=== PATIENT | male | born 1995 | race Caucasian/White ===

== ENCOUNTER 2016-11-23 20:22 | Emergency (ER) | payer SELFPAY ==
[~2016-11-23] VITALS: Ht 175.3 cm; Wt 75.7 kg
[~2016-11-23 20:22] MED LIST: CARB20TA PO; CELE10TA PO
[2016-11-23 22:19] VITALS: BP 152/86
== END 2016-11-23 22:24 | disposition home or self-care (01) ==
LOC: M ED 21:28
DX: R21 Rash and other nonspecific skin eruption (principal); F17.200 Nicotine dependence, unspecified, uncomplicated

== ENCOUNTER 2018-07-08 14:20 | Emergency (ER) | payer SELFPAY | END 2018-07-08 15:52 | disposition home or self-care (01) | LOC: M ED 14:20 | DX: N50.3 Cyst of epididymis (principal); N50.89 Other specified disorders of the male genital organs; F17.200 Nicotine dependence, unspecified, uncomplicated; Z91.030 Bee allergy status | CPT/HCPCS: 76870 ==

== ENCOUNTER 2020-03-29 23:58 | Emergency (ER) | payer SELFPAY ==
[~2020-03-29] VITALS: Ht 180.3 cm; Wt 81.8 kg
[~2020-03-29 23:58] MED LIST changes: +DOXY100C37 PO
[2020-03-30 01:09] LABS: HEMATOCRIT 38.3 % (42.0-52.0); HEMOGLOBIN 12.7 g/dl (13.5-17.5); MEAN CORPUSCULAR HEMOGLOBIN 29.7 pg (27.0-33.0); MEAN CORPUSCULAR HGB CONC 33.2 g/dl (32.0-36.5); MEAN CORPUSCULAR VOLUME 89.5 fl (80.0-96.0); PLATELET COUNT, AUTOMATED 204 10^3/uL (150-450); RED BLOOD COUNT 4.28 10^6/uL (4.30-6.10); WHITE BLOOD COUNT 5.7 10^3/uL (4.0-10.0)
[2020-03-30 02:00] LABS: AMPHETAMINES LEVEL URINE NEGATIVE (NEGATIVE); BARBITURATES URINE NEGATIVE (NEGATIVE); BENZODIAZEPINES URINE NEGATIVE (NEGATIVE); CANNABINOIDS URINE POSITIVE (NEGATIVE); COCAINE METABOLITE URINE POSITIVE (NEGATIVE); METHADONE URINE NEGATIVE (NEGATIVE); OPIATES URINE POSITIVE (NEGATIVE); PHENCYCLIDINE URINE NEGATIVE (NEGATIVE)
[2020-03-30 02:10] LABS: ACETAMINOPHEN LEVEL < 2.0 UG/ML (10.0-30.0); ALBUMIN 3.6 GM/DL (3.2-5.2); ALT/SGPT 113 U/L (12-78); BILIRUBIN,DIRECT 0.1 MG/DL (0.0-0.2); BILIRUBIN,TOTAL 0.5 MG/DL (0.2-1.0); BLOOD UREA NITROGEN 19 MG/DL (7-18); CALCIUM LEVEL 8.4 MG/DL (8.5-10.1); CARBON DIOXIDE LEVEL 29 MEQ/L (21-32); CHLORIDE LEVEL 107 MEQ/L (98-107); CREATININE FOR GFR 1.31 MG/DL (0.70-1.30); ETHYL ALCOHOL (ETHANOL) < 0.003 % (0.000-0.010); GLOMERULAR FILTRATION RATE > 60.0 (>60); GLUCOSE, FASTING 85 MG/DL (70-100); POTASSIUM SERUM 4.1 MEQ/L (3.5-5.1); SALICYLATE LEVEL 2.2 MG/DL (5.0-30.0); SODIUM LEVEL 144 MEQ/L (136-145); TOTAL PROTEIN 6.8 GM/DL (6.4-8.2)
[2020-03-30 02:11] LABS: THYROID STIMULATING HORMONE 0.918 uIU/ML (0.358-3.740)
[2020-03-30 02:54] VITALS: BP 119/70
== END 2020-03-30 02:56 | disposition home or self-care (01) ==
LOC: M ED 23:58
DX: F43.0 Acute stress reaction (principal); F32.9 Major depressive disorder, single episode, unspecified; Z72.0 Tobacco use; F12.10 Cannabis abuse, uncomplicated; F14.10 Cocaine abuse, uncomplicated; F11.10 Opioid abuse, uncomplicated; Z91.030 Bee allergy status
CPT/HCPCS: 80048; 80076; 80307; 84443; 85027; 99284; G0480

== ENCOUNTER 2020-05-09 15:00 | Emergency (ER) | payer SELFPAY ==
[~2020-05-09] VITALS: Ht 182.9 cm; Wt 81.8 kg
[2020-05-09 16:06] LABS: BASO % 0.5 % (0.0-1.0); EOS # 0.2 10^3/uL (0.0-0.5); EOS % 2.5 % (0.0-3.0); HEMATOCRIT 39.8 % (42.0-52.0); HEMOGLOBIN 13.3 g/dl (13.5-17.5); LYMPH # 1.5 10^3/uL (1.5-5.0); LYMPH % 18.9 % (24.0-44.0); MEAN CORPUSCULAR HGB CONC 33.4 g/dl (32.0-36.5); MEAN CORPUSCULAR VOLUME 89.6 fl (80.0-96.0); MONO # 1.2 10^3/uL (0.0-0.8); MONO % 14.2 % (0.0-5.0); NEUTROPHILS # 5.1 10^3/uL (1.5-8.5); NEUTROPHILS % 63.5 % (36.0-66.0); PLATELET COUNT, AUTOMATED 226 10^3/uL (150-450); RED BLOOD COUNT 4.44 10^6/uL (4.30-6.10); WHITE BLOOD COUNT 8.1 10^3/uL (4.0-10.0)
[2020-05-09 16:37] LABS: ALBUMIN 3.5 GM/DL (3.2-5.2); ALT/SGPT 390 U/L (12-78); BILIRUBIN,DIRECT 0.2 MG/DL (0.0-0.2); BILIRUBIN,TOTAL 0.5 MG/DL (0.2-1.0); BLOOD UREA NITROGEN 14 MG/DL (7-18); CALCIUM LEVEL 8.8 MG/DL (8.5-10.1); CARBON DIOXIDE LEVEL 29 MEQ/L (21-32); CHLORIDE LEVEL 102 MEQ/L (98-107); CREATININE FOR GFR 0.95 MG/DL (0.70-1.30); GLOMERULAR FILTRATION RATE > 60.0 (>60); GLUCOSE, FASTING 117 MG/DL (70-100); LIPASE 74 U/L (73-393); POTASSIUM SERUM 4.3 MEQ/L (3.5-5.1); SODIUM LEVEL 135 MEQ/L (136-145); TOTAL PROTEIN 6.7 GM/DL (6.4-8.2)
[2020-05-09] MEDS ORDERED: NORCO, ANEXSIA 5/325MG TABLET (HYDROcodone/ACETAMINOPHEN) PO ONE (17:00)
[2020-05-09] MEDS ORDERED: cefTRIAXone SOD 1 GM in D5W MINI-BAG PLUS 50 ML IV ONE (17:15)
[2020-05-09] MEDS ORDERED: KETOROLAC 30 MG/ML 1ML VIAL IV ONE (17:15)
[2020-05-09] MEDS ORDERED: NS 1,000 ML IV ONE (17:15)
[2020-05-09] MEDS ORDERED: BACT800T5 PO (18:21)
[2020-05-09 18:29] VITALS: BP 124/69
[2020-05-09] MEDS ORDERED: BACTRIM 160MG/800MG DS TAB PO ONE (18:30)
[2020-05-10 18:11] LABS: HEPATITIS A ANTIBODY IGM NEGATIVE (NEGATIVE); HEPATITIS B CORE ANTIBODY IGM NEGATIVE (NEGATIVE); HEPATITIS B SURFACE ANTIGEN NEGATIVE (NEGATIVE)
[2020-05-11 08:19] LABS: HEPATITIS C VIRUS ABY INDEX > 11.0 INDEX (<0.8)
--- NOTE | 2020-06-09 10:40 | REP ---
LEFT TIBIA/FIBULA CLINICAL: Cellulitis. TECHNIQUE: AP and lateral views. FINDINGS: The osseous structures are intact and there is no evidence for acute fracture or dislocation. No periosteal reaction to suggest underlying osteomyelitis. The surrounding soft tissues are grossly unremarkable by radiographic evaluation and without subcutaneous emphysema or foreign body. IMPRESSION: Normal left tibia/fibula radiographs. No evidence for osteomyelitis or foreign body. MTDD
== END 2020-05-09 18:41 | disposition home or self-care (01) ==
LOC: M ED 15:00
DX: L03.116 Cellulitis of left lower limb (principal); F17.200 Nicotine dependence, unspecified, uncomplicated; Z91.030 Bee allergy status
CPT/HCPCS: 73590; 80048; 80076; 83605; 83690; 85025; 86705; 86709; 86803; 87040; 87340; 87521; 96365; 96375; 99284; J0696; J1885

== ENCOUNTER 2020-06-12 02:29 | Emergency (ER) | payer MEDICAID, SELFPAY ==
[~2020-06-12] VITALS: Ht 175.3 cm; Wt 72.7 kg
[~2020-06-12 02:29] MED LIST changes: +BACT800T5 PO
[2020-06-12] MEDS ORDERED: NS 1,000 ML IV ONE (02:45)
[2020-06-12 03:05] LABS: BASO # 0.1 10^3/uL (0.0-0.2); EOS # 0.4 10^3/uL (0.0-0.5); EOS % 4.8 % (0.0-3.0); HEMATOCRIT 41.7 % (42.0-52.0); HEMOGLOBIN 13.5 g/dl (13.5-17.5); LYMPH # 2.9 10^3/uL (1.5-5.0); LYMPH % 40.2 % (24.0-44.0); MEAN CORPUSCULAR HEMOGLOBIN 28.8 pg (27.0-33.0); MEAN CORPUSCULAR HGB CONC 32.4 g/dl (32.0-36.5); MEAN CORPUSCULAR VOLUME 89.1 fl (80.0-96.0); MONO % 13.5 % (0.0-5.0); NEUTROPHILS # 2.9 10^3/uL (1.5-8.5); NEUTROPHILS % 40.4 % (36.0-66.0); PLATELET COUNT, AUTOMATED 259 10^3/uL (150-450); RED BLOOD COUNT 4.68 10^6/uL (4.30-6.10); WHITE BLOOD COUNT 7.3 10^3/uL (4.0-10.0)
[2020-06-12 03:17] LABS: INR 0.97
[2020-06-12 03:18] LABS: PARTIAL THROMBOPLASTIN TIME 35.3 SECONDS (24.2-38.5)
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
[2020-06-12 03:24] LABS: BLOOD UREA NITROGEN 21 MG/DL (7-18); CALCIUM LEVEL 9.6 MG/DL (8.5-10.1); CARBON DIOXIDE LEVEL 28 MEQ/L (21-32); CHLORIDE LEVEL 103 MEQ/L (98-107); CREATININE FOR GFR 1.23 MG/DL (0.70-1.30); ETHYL ALCOHOL (ETHANOL) < 0.003 % (0.000-0.010); GLOMERULAR FILTRATION RATE > 60.0 (>60); GLUCOSE, FASTING 104 MG/DL (70-100); POTASSIUM SERUM 4.5 MEQ/L (3.5-5.1); SODIUM LEVEL 138 MEQ/L (136-145)
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
[2020-06-12] MEDS ORDERED: NALOXONE 2MG/2ML SYRINGE (J2310 PER 1MG) IV STA (04:54)
[2020-06-12 05:36] LABS: AMPHETAMINES LEVEL URINE POSITIVE (NEGATIVE); BARBITURATES URINE NEGATIVE (NEGATIVE); BENZODIAZEPINES URINE NEGATIVE (NEGATIVE); CANNABINOIDS URINE POSITIVE (NEGATIVE); COCAINE METABOLITE URINE NEGATIVE (NEGATIVE); METHADONE URINE NEGATIVE (NEGATIVE); OPIATES URINE POSITIVE (NEGATIVE); PHENCYCLIDINE URINE NEGATIVE (NEGATIVE)
[2020-06-12] MEDS ORDERED: AUGM875T28 PO (05:56)
[2020-06-12 07:38] VITALS: BP 120/68
[2020-06-12] MEDS ORDERED: ACETAMINOPHEN TAB 650MG DOSE (2X325MG) PO ONE (08:15)
[2020-06-12] MEDS ORDERED: AUGMENTIN 875 MG TAB PO ONE (08:30)
--- NOTE | 2020-06-13 07:37 | ED PDOC ---
Post-Departure Follow-Up dr beto berg faxed formal report of ct max fac for fu Casimiro Cuevas MD Jun 13, 2020 07:37
== END 2020-06-12 09:38 | disposition home or self-care (01) ==
LOC: M ED 02:29
DX: S02.2XXA Fracture of nasal bones, initial encounter for closed fracture (principal); S02.32XA Fracture of orbital floor, left side, initial encounter for closed fracture; F11.129 Opioid abuse with intoxication, unspecified; Y04.8XXA Assault by other bodily force, initial encounter; Y92.9 Unspecified place or not applicable; Y93.9 Activity, unspecified; Y99.9 Unspecified external cause status; Z04.71 Encounter for examination and observation following alleged adult physical abuse; F32.9 Major depressive disorder, single episode, unspecified; Z91.030 Bee allergy status; J30.1 Allergic rhinitis due to pollen
CPT/HCPCS: 70450; 70486; 71045; 72125; 80048; 80307; 85025; 85610; 85730; 96360; 99284; G0480

== ENCOUNTER 2020-06-18 21:27 | Emergency (ER) | payer SELFPAY ==
[~2020-06-18] VITALS: Ht 180.3 cm; Wt 75.9 kg
[2020-06-18 21:27] VITALS: BP 140/96
[~2020-06-18 21:27] MED LIST changes: +AUGM875T28 PO
[2020-06-18] MEDS ORDERED: ACET-683 PO (21:32)
== END 2020-06-18 22:30 | disposition left against medical advice (07) ==
LOC: M ED 21:27
DX: Z53.21 Procedure and treatment not carried out due to patient leaving prior to being seen by health care provider (principal)

== ENCOUNTER 2020-06-29 22:57 | Emergency (ER) | payer MEDICAID, SELFPAY ==
[~2020-06-29] VITALS: Ht 175.3 cm; Wt 75.3 kg
[~2020-06-29 22:57] MED LIST changes: +ACET-683 PO
[2020-06-30] MEDS ORDERED: KEFL500C17 PO (01:36)
[2020-06-30] MEDS ORDERED: CEPHALEXIN 500 MG CAP PO ONE (01:45)
[2020-06-30] MEDS ORDERED: KETOROLAC 60MG 2ML VIAL IM ONE (01:45)
[2020-06-30 02:20] VITALS: BP 144/83
== END 2020-06-30 02:23 | disposition home or self-care (01) ==
LOC: M ED 22:57
DX: L03.113 Cellulitis of right upper limb (principal); F19.10 Other psychoactive substance abuse, uncomplicated; J30.1 Allergic rhinitis due to pollen; F17.200 Nicotine dependence, unspecified, uncomplicated; Z91.030 Bee allergy status
CPT/HCPCS: 96372; 99283; J1885

== ENCOUNTER 2021-01-22 11:49 | Emergency (ER) | payer MEDICAID ==
[~2021-01-22] VITALS: Ht 180.3 cm; Wt 84.0 kg
[~2021-01-22 11:49] MED LIST changes: +KEFL500C17 PO
[2021-01-22] MEDS ORDERED: NS 1,000 ML IV SCH (11:55)
[2021-01-22 12:12] LABS: BASO # 0.1 10^3/uL (0.0-0.2); BASO % 0.6 % (0.0-1.0); EOS # 0.1 10^3/uL (0.0-0.5); EOS % 0.9 % (0.0-3.0); HEMATOCRIT 43.6 % (42.0-52.0); HEMOGLOBIN 14.6 g/dl (13.5-17.5); LYMPH # 1.2 10^3/uL (1.5-5.0); LYMPH % 11.1 % (24.0-44.0); MEAN CORPUSCULAR HGB CONC 33.5 g/dl (32.0-36.5); MEAN CORPUSCULAR VOLUME 89.7 fl (80.0-96.0); MONO # 1.6 10^3/uL (0.0-0.8); NEUTROPHILS # 7.8 10^3/uL (1.5-8.5); PLATELET COUNT, AUTOMATED 284 10^3/uL (150-450); RED BLOOD COUNT 4.86 10^6/uL (4.30-6.10); WHITE BLOOD COUNT 10.8 10^3/uL (4.0-10.0)
[2021-01-22 12:54] LABS: ACETAMINOPHEN LEVEL < 2.0 UG/ML (10.0-30.0); ALBUMIN 4.7 GM/DL (3.2-5.2); ALT/SGPT 277 U/L (12-78); BILIRUBIN,DIRECT 0.7 MG/DL (0.0-0.2); BILIRUBIN,TOTAL 1.9 MG/DL (0.2-1.0); BLOOD UREA NITROGEN 19 MG/DL (7-18); CALCIUM LEVEL 9.3 MG/DL (8.5-10.1); CARBON DIOXIDE LEVEL 23 MEQ/L (21-32); CHLORIDE LEVEL 103 MEQ/L (98-107); CPK CREATINE PHOSPHOKINASE 1414 U/L (39-308); CREATININE FOR GFR 1.37 MG/DL (0.70-1.30); ETHYL ALCOHOL (ETHANOL) < 0.003 % (0.000-0.010); GLOMERULAR FILTRATION RATE > 60.0 (>60); GLUCOSE, FASTING 86 MG/DL (70-100); POTASSIUM SERUM 4.3 MEQ/L (3.5-5.1); SALICYLATE LEVEL < 1.7 MG/DL (5.0-30.0); SODIUM LEVEL 137 MEQ/L (136-145)
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
[2021-01-22 13:00] VITALS: BP 118/80
[2021-01-22] MEDS ORDERED: NS 1,000 ML IV ONE (13:00)
--- NOTE | 2021-01-23 19:58 | ECGEPIP ---
[facility] - ED Test Date: 2021-01-22 Pat Name: WILDER LOUISE Department: Room: - Gender: Male [employer]: BETH : 1995 Requested By: Cammie Braun Order Number: [id number] Reading MD: Cammie Braun Measurements Intervals [place] Rate: 104 P: 67 IA: 136 QRS: 59 QRSD: 94 T: 37 QT: 340 QTc: 447 Interpretive Statements Sinus tachycardia increased rate 11/03/14 Electronically Signed on 01-23-2021 19:57:57 EDT by Cammie Braun
== END 2021-01-22 13:12 | disposition left against medical advice (07) ==
LOC: M ED 11:49 → EDBD 11:49 → M ED 13:12
DX: F11.10 Opioid abuse, uncomplicated (principal); R00.0 Tachycardia, unspecified; Z53.9 Procedure and treatment not carried out, unspecified reason; S20.319A Abrasion of unspecified front wall of thorax, initial encounter; S00.81XA Abrasion of other part of head, initial encounter; S40.819A Abrasion of unspecified upper arm, initial encounter; X58.XXXA Exposure to other specified factors, initial encounter; Y92.9 Unspecified place or not applicable; Y93.89 Activity, other specified; Y99.9 Unspecified external cause status; F17.200 Nicotine dependence, unspecified, uncomplicated; Z91.030 Bee allergy status

== ENCOUNTER 2021-01-25 18:08 | Emergency (ER) | payer MEDICAID ==
[~2021-01-25] VITALS: Ht 175.3 cm; Wt 84.7 kg
[2021-01-25 18:09] VITALS: BP 124/92
== END 2021-01-25 20:02 | disposition left against medical advice (07) ==
LOC: M ED 18:08
DX: Z53.21 Procedure and treatment not carried out due to patient leaving prior to being seen by health care provider (principal)

== ENCOUNTER → 2021-01-26 | Outpatient (CLI) | payer MEDICAID | LOC: M LABSMTC 10:57 | PROVIDERS: ATTEND Pediatrics | DX: Z20.822 Contact with and (suspected) exposure to COVID-19 (principal) | CPT/HCPCS: C9803; U0003 ==

== ENCOUNTER 2021-07-01 00:14 | Emergency (ER) | payer MEDICAID ==
[~2021-07-01] VITALS: Ht 180.3 cm; Wt 90.9 kg
[~2021-07-01 00:14] MED LIST changes: +DOXY-443 PO; -DOXY100C37 PO
--- OUTSIDE RECORDS SUMMARY | 2021-07-01 00:21 | CCD ---
Author Author [facility] Organization [facility] Address Unknown Phone Unavailable Care Team Providers Care [place] Guide Name Role Phone ARBEN OTTO MD Unavailable Unavailable PORTARBEN HITCHCOCK MD Unavailable Unavailable PORTARBEN HITCHCOCK MD Unavailable Unavailable PORTNERARBEN MD Unavailable Unavailable PORTNERARBEN MD Unavailable Unavailable PORTARBEN HITCHCOCK MD Unavailable Unavailable PORTNERARBEN MD Unavailable Unavailable PORTNERARBEN MD Unavailable Unavailable Elizabeth Cisneros Unavailable Re-disclosure Warning The records that you are about to access may contain information from federally-assisted alcohol or drug abuse programs. If such information is present, then the following federally mandated warning applies: This information has been disclosed to you from records protected by federal confidentiality rules (42 CFR part 2). The federal rules prohibit you from making any further disclosure of this information unless further disclosure is expressly permitted by the written consent of the person to whom it pertains or as otherwise permitted by 42 CFR part 2. A general authorization for the release of medical or other information is NOT sufficient for this purpose. The Federal rules restrict any use of the information to criminally investigate or prosecute any alcohol or drug abuse patient.The records that you are about to access may contain highly sensitive health information, the redisclosure of which is protected by Article 27-F of the [place] State Public Health law. If you continue you may have access to information: Regarding HIV / AIDS; Provided by facilities licensed or operated by the [facility] Office of Mental Health; or Provided by the [facility] Office for People With Developmental Disabilities. If such information is present, then the following [facility] mandated warning applies: This information has been disclosed to you from confidential records which are protected by state law. State law prohibits you from making any further disclosure of this information without the specific written consent of the person to whom it pertains, or as otherwise permitted by law. Any unauthorized further disclosure in violation of state law may result in a fine or residential sentence or both. A general authorization for the release of medical or other information is NOT sufficient authorization for further disc losure. Allergies and Adverse Reactions Type Description Substance Reaction Status Data Source(s ) Drug allergy Drug allergy No Known Allergies [facility] Encounters Encounter Providers Location Date Indications Data Source(s ) [facility] - Case Management Attender: Elizabeth Cisneros [facility] J ail 12/05/2020 09:30:00 AM EDT - 12/05/2020 09:30:00 AM EDT [facility] ([facility]) Attender: Elizabeth Blayne 12/05/2020 12:00:00 AM E DT [facility] ([facility]) Extended Individual Psychotherapy - 45 min Attender: Won Cisneros [facility] Senior [facility] 09/26/2020 12:15:00 PM EST - 09/26/2020 12:15:00 PM EST [facility] ([facility]) Attender: Elizabeth Blayne 09/26/2020 12:00:[address] [facility] ([facility]) Outpatient CPSCAORT-LABEJN 07/23/2020 02:53:00 PM [facility] Inpatient Attender: ARBEN OTTO MDAdmitter: ARBEN Leggett MD ED-MSP 07/22/2020 06:38:00 PM EST - 07/22/2020 09:40:00 PM [facility] F19.20 [facility] F19.20 Patient discharged. Medications Medication Brand Name Start Date Product Form Dose Route Admi nistrative Instructions Pharmacy Instructions Status Indications Reaction Description Data Source(s) Cephalexin 500 MG Oral Capsule Cephalexin 12/06/2020 12:00:00 AM EDT ORAL active [facility] ([facility]) Ibuprofen 200 MG Oral Tablet Ibuprofen 200 11/07/2020 12:00:00 AM EST ORAL active [facility] ([facility]) Cephalexin 500 MG Oral Capsule CEPHALEXIN 06/30/2020 12:00:00 AM EDT capsule 20 TAKE 1 CAPSULE BY MOUTH EVERY 12 HOURS TAKE 1 CAPSULE BY SARAH TH EVERY 12 HOURS SOLD: 06/30/2020 [facility] 875-125 mg 06/12/2020 12:00:00 AM EDT tablet 20 TAKE ONE TABLET BY MOUTH TWICE A DAY TAKE ONE TABLET BY MOUTH TWICE A DAY SOLD: 06/13/2020 [facility] Sulfamethoxazole 800 MG / Trimethoprim 160 MG Oral Tab let 800-160 mg SULFAMETHOXAZOLE/TRIMETHOPRIM 05/09/2020 12:00:00 AM EDT tablet 20 TAKE ONE TABLET BY MOUTH TWO TIMES A DAY TAKE ONE TABLET BY MOUTH TWO TIMES A DAY SOLD: 05/10/2020 [facility] Insurance Providers Payer name Policy type / Coverage type Policy ID Covered libertarian ID Covered libertarian's relationship to sandy Policy [place] Plan Information [id number] SP [id number] N MEDICAID [id number] S [id number] [place] [id number] SP [id number] SELF PAY S SELF PAY ONLY [id number] SP [id number] SELF PAY UNAVAILABLE SP UNAVAILA BLE O UNAVAILABLE UNAVAILA BLE MEDICAID [id number] SP [id number] [facility] PLAN [facility] [id number] SP [id number] [facility] 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 [facility] [id number] SP [id number] Problems, Conditions, and Diagnoses Code Display Name Description Problem Type Effective Dates Data Source(s) A49.02 Methicillin resistant Staphylococcus aur eus infection, unspecified site METHICILLIN RESIS STAPH INFECTION, UNSP SITE Diagnosis 0 06:38:00 PM [facility] L98.9 Disorder of the skin and subcutaneous ti ssue, unspecified DISORDER OF THE SKIN AND SUBCUTANEOUS TISSUE, UNSPECIFIED Diagnosis 07/22/2020 06:38:0 0 PM [facility] Z53.29 Procedure and treatment not carried out because of patient's decision for other reasons PROC/TRTMT NOT CRD OUT BEC PT DECISION FOR OTH REASONS Diagn osis 07/22/2020 06:38:00 PM [facility] R00.0 Tachycardia, unspecified TACHYCARDIA, UNSPECIFIED Diag nosis 07/22/2020 06:38:00 PM [facility] F19.20 Other psychoactive substance dependence, uncomplicated OTHER PSYCHOACTIVE SUBSTANCE DEPENDENCE, UNCOMPLICATED Diagnosis 07/22/2020 06:38:00 PM E [facility] F41.1 Generalized anxiety disorder Generalized Anxiety Disor conchis Condition 12/05/2020 12:00:00 AM EDT [facility] ([facility]) Surgeries/Procedures Procedure Description Date Indications Data Source(s) [facility] - [facility] 12/05/2020 12:00: 00 AM EDT - 12/05/2020 12:00:00 AM EDT [facility] ([facility]) Senior Care - Case Management 12/05/2020 12:00:00 AM EDT [facility] ([facility]) Extended Individual Psychotherapy - 45 min 09/26/2020 12:00:00 AM EST - 09/26/2020 12:00:00 AM EST [facility] ([facility]) Extended Individual Psychotherapy - 45 min 12:00:00 AM EST [facility] ([facility]) THYROID STIMULATING HORMONE TSH ASSAY THYROID STIM HORMONE 1 09/21/2019 12:00:00 AM [facility] HEPATITIS ANTIBODY HAAB TOTAL HEPATITIS A ANTIBODY 07/22/2020 12:00 :00 AM [facility] CULTURE BACTERIAL BLOOD AEROBIC W/ID ISOLATES BLOOD CULTURE FOR BACTERIA 07/22/2020 12:00:00 AM [facility] IAAD EIA HEPATITIS B SURFACE ANTIGEN HEPATITIS B SURFACE AG IA 07/22/2020 12:00:00 AM [facility] ANTIBODY TREPONEMA PALLIDUM TREPONEMA PALLIDUM 07/22/2020 12:00:00 AM [facility] IAAD EIA HIV-1 AG W/HIV-1&HIV-2 ANTBDY SINGLE HIV-1 AG W/HIV -1 & HIV-2 AB 07/22/2020 12:00:00 AM [facility] HEPATITIS C ANTIBODY HEPATITIS C AB TEST 07/22/2020 12:00:00 AM [facility] BLOOD COUNT COMPLETE AUTO&AUTO DIFRNTL WBC COUNT COMPLETE CB C W/AUTO DIFF WBC 07/22/2020 12:00:00 AM [facility] [address]25 DRUG SCREEN QUANTALCOHOLS 07/22/2020 12:00:00 AM [facility] MAGNESIUM ASSAY OF MAGNESIUM 07/22/2020 12:00:00 AM [facility] PHOSPHORUS INORGANIC ASSAY OF PHOSPHORUS 07/22/2020 12:00:00 AM [facility] HEPATIC FUNCTION PANEL HEPATIC FUNCTION PANEL 07/22/2020 12:00:00 A M [facility] COMPREHENSIVE METABOLIC PANEL COMPREHEN METABOLIC PANEL 02/2020 12:00:00 AM [facility] Results ID Date Data Source [id number] 01/26/2021 12:00:00 PM EDT [facility] Name Value Range Interpretation Code Description Data Nikky rce(s) Supporting Document(s) SARS-CoV-2 (COVID-19) RNA [Presence] in Respiratory specimen by COLLINS with probe detection Not Detected [facility] This lab was ordered by [facility] and reported by [employer] ID Date Data Source [id number] 07/28/2020 04:40:00 PM [facility] kate NO GROWTH AFTER 120 HOURS (5 Days) Proc edure Performed By: [facility] [address] [place] [address] Director: Ashlie Buchanan Name Value Range Interpretation Code Description Data Nikky rce(s) Supporting Document(s) ID Date Data Source [id number] 08/29/2020 01:25:00 PM [facility] Name Value Range Interpretation Code Description Data Nikky rce(s) Supporting Document(s) Hepatitis A Ab,IgG result Normal (applies to no n-numeric results) [facility] Result indicates no past exposure or imm unity to hepatitis A infection. REFERENCE VALUE Unvaccinated: Negative Vaccinated: Positive Test Performed by: [facility] [address] [place] [address] [facility] Keeper: Lul Padilla M.D. Ph.D.; CLIA# [id number] ID Date Data Source [id number] 08/29/2020 11:47:00 AM EST Health system NO GROWTH AFTER 120 HOURS (5 Days) Pr ocedure Performed By: [facility] [address] [place] [address] Director: Ashlie Buchanan Name Value Range Interpretation Code Description Data Nikky rce(s) Supporting Document(s) ID Date Data Source [id number] 08/29/2020 11:47:00 AM EST Health system NO GROWTH AFTER 120 HOURS (5 Days) Pr ocedure Performed By: [facility] [address] [place] [address] Director: Ashlie Buchanan Name Value Range Interpretation Code Description Data Nikky rce(s) Supporting Document(s) ID Date Data Source [id number] 07/24/2020 12:45:00 AM [facility] Test Performed By: [facility] [address] [place] [address] Director: Ashlie Rabago MD Test Performed By: [facility] [address] [place] [address] Director: Ashlie Rabago MD Name Value Range Interpretation Code Description Data Nikky rce(s) Supporting Document(s) ID Date Data Source [id number] 07/24/2020 12:45:00 AM EST [facility] Test Performed By: [facility] [address] [place] [address] Director: Ashlie Rabago MD Test Performed By: [facility] [address] [place] [address] Director: Ashlie Rabago MD Name Value Range Interpretation Code Description Data Nikky rce(s) Supporting Document(s) Hep C Ab-T Test Nonreactive [facility] Test Performed By: [facility] [address] [place] [address] Director: Ashlie Rabago MD Results called 07/24/20 0042, DAVIAN ROSEN MT read back information to Verena Morillo THIS IS A STATE REPORTABLE COMMUNICABLE DISEASE. Note: This patient's sample tests reactive with a high Index >/= 11.00. Samples with high indexes have been shown to repeat positive using a different methodology 95% of the time or greater but <5 of every 100 samples might be false positives. Additional testing for verification of the result can be requested by the physician if necessary. ([facility] MMWR No RR-3. 2003). ID Date Data Source [id number] 07/24/2020 12:45:00 AM [facility] Test Performed By: [place] [address] Director: Ashlie Rabago MD Test Performed By: [place] [address] Director: Ashlie Rabago MD Name Value Range Interpretation Code Description Data Nikky rce(s) Supporting Document(s) ID Date Data Source [id number] 07/24/2020 12:34:00 AM [facility] Value Range Interpretation Code Description Data Nikky rce(s) Supporting Document(s) HIV 1/2 Ab p24 Ag Screen Nonreactive Normal (applies to non-numeric results) [facility] Test Performed By: [place] [address] Director: Ashlie Rabago MD ID Date Data Source [id number] 07/23/2020 05:03:00 PM [facility] Name Value Range Interpretation Code Description Data Nikky rce(s) Supporting Document(s) CPK 150 U/L 39-308 Normal (applies to non-numeric resul ts) [facility] Test Performed By: [facility] [address] [place] [address] Director: Ashlie Rabago MD ID Date Data Source [id number] 07/28/2020 07:14:00 AM [facility] Name Value Range Interpretation Code Description Data Nikky rce(s) Supporting Document(s) Hepatitis A Ab,IgG result Normal (applies to no n-numeric results) [facility] Result indicates no past exposure or imm unity to hepatitis A infection. REFERENCE VALUE Unvaccinated: Negative Vaccinated: Positive Test Performed by: [facility] [address] [place] [address] [facility] Keeper: Lul Padilla M.D. Ph.D.; CLIA# [id number] ID Date Data Source [id number] 07/24/2020 01:48:00 AM [facility] Name Value Range Interpretation Code Description Data [facility] rce(s) Supporting Document(s) HIV Screen result Nonreactive Normal (applies to non-numer ic results) [facility] Test Performed By: [facility] [address] [place] [address] Director: Ashlie Rabago MD ID Date Data Source [id number] 07/22/2020 10:15:00 PM [facility] Name Value Range Interpretation Code Description Data Nikky rce(s) Supporting Document(s) Sodium 141 mmol/L 136-145 Normal (applies to non-numeric resul ts) [facility] Potassium 3.5-5.1 Normal (applies to non-numeric resul ts) [facility] Chloride 105 mmol/L 98-107 Normal (applies to non-numeric resul ts) [facility] Carbon Dioxide CO2 21-32 Normal (applies to non-numer ic results) [facility] Anion Gap 5.0-16.0 Normal (applies to non-numeric resul ts) [facility] BUN 18 mg/dL 7-18 Normal (applies to non-numeric results) [facility] Creatinine,Serum 0.8-1.5 Normal (applies to non-numeric results) [facility] GFR >60 Normal (applies to non-numeric results) [facility] Glucose Level 155 mg/dL 60-99 Above high normal [facility] Reference range is only applicable when patient is fasting Note the following drug interference: Sulfasalazine Sulfapyridine Can see falsely depressed Can see falsely elevated result with up to 17% results with up to 11% decrease in measurement increase in measurement Recommend patients be collected for this test prior to administration of either drug. Calcium 8.5-10.1 Below low normal [facility] spital Bilirubin,Total 0.1-1.9 Normal (applies to non-numeric results) [facility] SGOT(AST) 38 U/L 15-37 Above high normal [facility] ospital Note the following drug interference: Sulfasalazine Sulfapyridine Can see falsely depressed Can see falsely elevated result with up to 10% results with up to 10% decrease in measurement increase in measurement Recommend patients be collected for this test prior to administration of either drug. SGPT(ALT) 48 U/L 12-78 Normal (applies to non-numeric resul ts) [facility] Note the following drug interference: Sulfasalazine Sulfapyridine Can see falsely depressed Can see falsely elevated result with up to 29% results with up to 10% decrease in measurement increase in measurement Recommend patients be collected for this test prior to administration of either drug. Alkaline Phosphatase 74 U/L 38-126 Normal (applies to non-num evan results) [facility] can increase Alkaline Phosp le vels up to 2 times the normal adult value. Normal values for children and adolescents are 2 to 3 times the normal adult value. Total Protein 6.0-8.2 Normal (applies to non-numeric re sults) [facility] Albumin Level 3.4-5.0 Normal (applies to non-numeric re sults) [facility] ID Date Data Source [id number] 07/22/2020 10:15:00 PM EST [facility] Name Value Range Interpretation Code Description Data Nikky rce(s) Supporting Document(s) Bilirubin,Direct 0.05-0.20 Below low normal [facility] ID Date Data Source [id number] 07/22/2020 10:15:00 PM EST [facility] Name Value Range Interpretation Code Description Data Nikky rce(s) Supporting Document(s) Phosphorus 2.5-4.9 Normal (applies to non-numeric resul ts) [facility] ID Date Data Source [id number] 07/22/2020 10:15:00 PM EST [facility] Name Value Range Interpretation Code Description Data Nikky rce(s) Supporting Document(s) Magnesium 1.8-2.4 Normal (applies to non-numeric resul ts) [facility] ID Date Data Source [id number] 07/22/2020 10:15:00 PM EST [facility] Name Value Range Interpretation Code Description Data Nikky rce(s) Supporting Document(s) Thyroid Stimulate Hormone TSH 0.358-3.74 Below low normal [facility] ID Date Data Source [id number] 07/24/2020 01:48:00 AM EST [facility] Name Value Range Interpretation Code Description Data Nikky rce(s) Supporting Document(s) CPK result 150 U/L 39-308 Normal (applies to non-numeric resul ts) [facility] Test Performed By: [facility] [address] [place] [address] Director: Ashlie Rabago MD ID Date Data Source [id number] 07/24/2020 01:48:00 AM EST [facility] Name Value Range Interpretation Code Description Data Nikky rce(s) Supporting Document(s) Hep Bs Ag result T-Test Nonreactive Normal (applies to non -numeric results) [facility] Test Performed By: [facility] [address] [place] [address] Director: Ashlie Rabago MD ID Date Data Source [id number] 07/24/2020 01:48:00 AM EST [facility] Name Value Range Interpretation Code Description Data Nikky rce(s) Supporting Document(s) Hepatitis C Virus Ab result Nonreactive Very abnormal (applies to non-numeric units [facility] Test Performed By: [facility] [address] [place] [address] Director: Ashlie Rabago MD Results called 07/24/20 0042DAVIAN MT read back information to Verena Morillo THIS IS A STATE REPORTABLE COMMUNICABLE DISEASE. Note: This patient's sample tests reactive with a high Index >/= 11.00. Samples with high indexes have been shown to repeat positive using a different methodology 95% of the time or greater but <5 of every 100 samples might be false positives. Additional testing for verification of the result can be requested by the physician if necessary. ([facility] MMWR No RR-3. 2002). CALLED TO ALONDRA DREW ID Date Data Source [id number] 07/24/2020 01:48:00 AM EST [facility] Name Value Range Interpretation Code Description Data Nikky rce(s) Supporting Document(s) Syphilis Serology result Nonreactive Normal (applies to non-numeric results) [facility] Test Performed By: [facility] [address] [place] [address] Director: Ashlie Rabago MD ID Date Data Source [id number] 07/22/2020 09:47:00 PM [facility] Name Value Range Interpretation Code Description Data Nikky rce(s) Supporting Document(s) Ethanol Less than 10.0 Normal (applies to non-numeric r esults) [facility] ID Date Data Source [id number] 07/22/2020 08:40:00 PM [facility] Name Value Range Interpretation Code Description Data Nikky rce(s) Supporting Document(s) White Blood Count 3.5-10.5 Normal (applies to non-numeri c results) [facility] Red Blood Count 4.30-5.70 Normal (applies to non-numeric results) [facility] Hemoglobin 13.5-17.5 Below low normal [facility] ospital Hematocrit 38.8-50.0 Normal (applies to non-numeric resul ts) [facility] Mean Corpuscular Volume 81.2-95.1 Normal (applies to non- numeric results) [facility] Mean Corpuscular Hgb 25.6-32.2 Normal (applies to non-num evan results) [facility] Mean Corpuscular Hgb Conc 32.0-36.0 Normal (applies to no n-numeric results) [facility] Red Cell Distribution Width 11.8-15.6 Normal (appli es to non-numeric results) [facility] Platelet Count 284 x10 3/uL 150-450 Normal (applies to non-numeric results) [facility] Mean Platelet Volume 9.4-12.4 Normal (applies to non-num evan results) [facility] Neutrophils% (Auto) 31.0-71.0 Normal (applies to non-nume us results) [facility] Lymphocytes% (Auto) 20.0-55.0 Normal (applies to non-nume su results) [facility] Monocytes% (Auto) 4.0-12.0 Normal (applies to non-numeri c results) [facility] Eosinophils% (Auto) 1.0-8.0 Normal (applies to non-nume su results) [facility] Basophils% (Auto) 0.0-2.0 Normal (applies to non-numeri c results) [facility] Immature Granulocytes% (Auto) 0.0-2.0 Normal (ayden lies to non-numeric results) [facility] Neutrophils# (Auto) 1.50-6.20 Normal (applies to non-nume su results) [facility] Lymphocytes# (Auto) 1.20-4.00 Normal (applies to non-nume su results) [facility] Monocytes# (Auto) 0.00-0.90 Normal (applies to non-numeri c results) [facility] Eosinophils# (Auto) 0.00-0.50 Normal (applies to non-nume su results) [facility] Basophils# (Auto) 0.00-0.20 Normal (applies to non-numeri c results) [facility] Immature Granulocytes# (Auto) 0.00-7.00 No rmal (applies to non-numeric results) [facility] ID Date Data Source [id number] 07/28/2020 04:42:00 PM EST [facility] kate NO GROWTH AFTER 120 HOURS (5 Days) Proc edure Performed By: [facility] [address] [place] [address] Director: Ashlie Buchanan Name Value Range Interpretation Code Description Data Nikky rce(s) Supporting Document(s) Procedure Social History Code Duration Value Status Description Data Source(s ) Smoking 12/05/2020 12:00:00 AM EDT Unknown if ever smoked comp leted Unknown if ever smoked [facility] ([facility]) Smoking 09/26/2020 12:00:00 AM EST Unknown if ever smoked comp leted Unknown if ever smoked [facility] ([facility]) Vital Signs ID Date Data Source [id number] 08/04/2020 05:33:00 PM EST [facility] Name Value Range Interpretation Code Description Data Source(s) Weight (Calculated Kilograms) 73.48 73.48 [facility] Weight 2592 2592 [facility] Respiratory Effort 1 1 [facility] Height (Calculated Centimeters) 175.26 175. 26 [facility] Body Mass Index (BMI) 23.9 23.9 [facility] Weight (Calculated Kilograms) 73.[address] [place] [address] Weight 2592 2592 [facility] Respiratory Effort 1 1 [facility] Height (Calculated Centimeters) 175.26 175. 26 [facility] Height 69 69 [facility] Body Mass Index (BMI) 23.9 23.9 [facility] Weight (Calculated Kilograms) 73.48 73.48 [facility] Weight 2592 2592 [facility] Respiratory Effort 1 1 [facility] Height (Calculated Centimeters) 175.26 175. 26 [facility] ([facility]) 23.9 23.9 [facility] Weight (Calculated Kilograms) 73.48 73.48 [facility] Weight 2592 2592 [facility] Respiratory Effort 1 1 [facility] Height (Calculated Centimeters) 175.26 175. 26 [facility] Height 69 69 [facility] Body Mass Index (BMI) 23.9 23.9 [facility] Weight (Calculated Kilograms) 73.48 73.48 [facility] Weight 2592 2592 [facility] Respiratory Effort 1 1 [facility] Height (Calculated Centimeters) 175.26 175. 26 [facility] Height 69 69 [facility] Body Mass Index (BMI) 23.9 23.9 [facility]
[2021-07-01 03:22] LABS: HEMATOCRIT 40.9 % (42.0-52.0); MEAN CORPUSCULAR HEMOGLOBIN 28.8 pg (27.0-33.0); MEAN CORPUSCULAR HGB CONC 31.8 g/dl (32.0-36.5); MEAN CORPUSCULAR VOLUME 90.7 fl (80.0-96.0); PLATELET COUNT, AUTOMATED 150 10^3/uL (150-450); RED BLOOD COUNT 4.51 10^6/uL (4.30-6.10); WHITE BLOOD COUNT 5.7 10^3/uL (4.0-10.0)
[2021-07-01 03:47] LABS: ALBUMIN 3.3 GM/DL (3.2-5.2); ALT/SGPT 213 U/L (12-78); BILIRUBIN,DIRECT < 0.1 MG/DL (0.0-0.2); BILIRUBIN,TOTAL 0.3 MG/DL (0.2-1.0); ETHYL ALCOHOL (ETHANOL) < 0.003 % (0.000-0.010); TOTAL PROTEIN 7.1 GM/DL (6.4-8.2)
[2021-07-01 03:57] LABS: BASOPHILS 1 % (0-1); HYPOCHROMASIA 1+; LYMPHOCYTES 26 % (16-44); MONOCYTES 10 % (0-5); NEUTROPHILS 57 % (28-66); PLATELET CLUMPS SMALL AMT; PLATELET ESTIMATE NORMAL (NORMAL)
[2021-07-01 04:04] LABS: BLOOD UREA NITROGEN 13 MG/DL (7-18); CALCIUM LEVEL 8.4 MG/DL (8.5-10.1); CARBON DIOXIDE LEVEL 32 MEQ/L (21-32); CHLORIDE LEVEL 105 MEQ/L (98-107); CREATININE FOR GFR 1.08 MG/DL (0.70-1.30); GLOMERULAR FILTRATION RATE > 60.0 (>60); GLUCOSE, FASTING 105 MG/DL (70-100); POTASSIUM SERUM 3.6 MEQ/L (3.5-5.1); SODIUM LEVEL 139 MEQ/L (136-145)
--- OUTSIDE RECORDS SUMMARY | 2021-07-01 05:13 | CCD ---
Author Author [facility] Organization [facility] Address Unknown Phone Unavailable Care Team Providers Care Hide And Skin Classer Name Role Phone ARBEN OTTO MD Unavailable Unavailable ARBEN OTTO MD Unavailable Unavailable ARBEN OTTO MD Unavailable Unavailable PORTNERARBEN MD Unavailable Unavailable PORTNERARBEN MD Unavailable Unavailable PORTNERARBEN MD Unavailable Unavailable PORTNER, ARBEN RUEDA Unavailable Unavailable PORTNERARBEN MD Unavailable Unavailable Elizabeth [...] is protected by Article 27-F of the [facility] Public Health law. If you continue you may have access to information: Regarding HIV / AIDS; Provided by facilities licensed or operated by the [facility] Office of Mental Health; or Provided by the [facility] Office for People With Developmental Disabilities. If such information is present, then the following [facility] mandated warning applies: This information has been [...] law may result in a fine or skilled nursing sentence or both. A general authorization for the release of medical or other information is NOT sufficient authorization for further disc losure. Allergies and Adverse Reactions Type Description Substance Reaction Status Data Source(s ) Drug allergy Drug allergy No Known Allergies [facility] Encounters Encounter Providers Location Date Indications Data Source(s ) [facility] - Case Management Attender: Elizabethjosef Cisneros [facility] J ail 12/05/2020 09:30:00 AM EDT - 12/05/2020 09:30:00 AM EDT [facility] ([facility]) Attender: Elizabeth Cisneros 12/05/2020 12:00:00 AM E DT [facility] ([facility]) Extended Individual Psychotherapy - 45 min Attender: Won a Blayne [facility] Usp 09/26/2020 12:15:00 PM EST - 09/26/2020 12:15:00 PM EST [facility] ([facility]) Attender: Elizabeth Cisneros 09/26/2020 12:00:[address] [facility] ([facility]) Outpatient CPSCAORT-LABEJN 07/23/2020 02:53:00 PM [facility] Inpatient Attender: ARBEN OTTO MDAdmitter: ARBEN Leggett MD ED-MSP 07/22/2020 06:38:00 PM EST - 07/22/2020 09:40:00 PM [facility] F19.20 [facility] F19.20 Patient discharged. Medications Medication Brand Name Start Date Product Form Dose Route Admi nistrative Instructions Pharmacy Instructions Status Indications Reaction Description Data Source(s) Cephalexin 500 MG Oral Capsule Cephalexin 12/06/2020 12:00:00 AM EDT ORAL active [facility] ([facility]) Ibuprofen 200 MG Oral Tablet Ibuprofen 200 11/07/2020 12:00:00 AM EST ORAL active [facility] ([facility]) Cephalexin 500 MG Oral Capsule CEPHALEXIN 06/30/2020 [...] type / Coverage type Policy ID Covered constitution party ID Covered constitution party's relationship to sandy Policy [place] Plan Information [place] [id number] SP [id number] N MEDICAID [id number] S [id number] EMEDNY [id number] SP [id number] SELF PAY S SELF PAY ONLY [id number] SP [id number] SELF PAY UNAVAILABLE SP UNAVAILA BLE O UNAVAILABLE UNAVAILA BLE MEDICAID [id number] SP [id number] [facility] [id number] SP [id number] [facility] 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 [id number] SP [id number] Problems, Conditions, and Diagnoses Code Display Name Description Problem Type Effective Dates Data Source(s) A49.02 Methicillin resistant Staphylococcus aur eus infection, unspecified site METHICILLIN RESIS STAPH INFECTION, UNSP SITE Diagnosis 0 06:38:00 PM [facility] L98.9 Disorder of the skin and subcutaneous ti ssue, unspecified DISORDER OF THE SKIN AND SUBCUTANEOUS TISSUE, UNSPECIFIED Diagnosis 07/22/2020 06:38:0 0 PM [facility] Z53.29 Procedure and treatment not carried out because of patient's decision for other reasons PROC/TRTMT NOT CRD OUT BEC PT DECISION FOR OTH REASONS Diagn osis 07/22/2020 06:38:00 PM [facility] R00.0 Tachycardia, unspecified TACHYCARDIA, UNSPECIFIED Diag nosis 07/22/2020 06:38:00 PM [facility] F19.20 Other psychoactive substance dependence, uncomplicated OTHER PSYCHOACTIVE SUBSTANCE DEPENDENCE, UNCOMPLICATED Diagnosis 07/22/2020 06:38:00 PM E [facility] F41.1 Generalized anxiety disorder Generalized Anxiety Disor conchis Condition 12/05/2020 12:00:00 AM EDT [facility] ([facility]) Surgeries/Procedures Procedure Description Date Indications Data Source(s) [facility] - Case Management 12/05/2020 12:00: 00 AM EDT - 12/05/2020 12:00:00 AM EDT [facility] ([facility]) [facility]sp - Case Management 12/05/2020 12:00:00 AM [facility] Extended Individual Psychotherapy - 45 min 09/26/2020 12:00:00 AM EST - 09/26/2020 12:00:00 AM EST [facility] ([facility]) Extended Individual Psychotherapy - 45 min 12:00:00 AM EST [facility] ([facility]) THYROID STIMULATING HORMONE TSH ASSAY THYROID STIM HORMONE 1 09/21/2019 12:00:00 AM [facility] HEPATITIS ANTIBODY HAAB TOTAL HEPATITIS A ANTIBODY 07/22/2020 12:00 :00 AM [facility] CULTURE BACTERIAL BLOOD AEROBIC W/ID ISOLATES BLOOD CULTURE FOR BACTERIA 07/22/2020 12:00:00 AM [facility] IAAD EIA HEPATITIS B SURFACE ANTIGEN HEPATITIS B SURFACE AG IA 07/22/2020 12:00:00 AM [facility] ANTIBODY TREPONEMA PALLIDUM TREPONEMA PALLIDUM 07/22/2020 12:00:00 AM [facility] IAAD EIA HIV-1 AG W/HIV-1&HIV-2 ANTBDY SINGLE HIV-1 AG W/HIV -1 & HIV-2 AB 07/22/2020 12:00:00 AM [facility] HEPATITIS C ANTIBODY HEPATITIS C AB TEST 07/22/2020 12:00:00 AM [facility] BLOOD COUNT COMPLETE AUTO&AUTO DIFRNTL WBC COUNT COMPLETE CB C W/AUTO DIFF WBC 07/22/2020 12:00:00 AM [facility] 05010 DRUG SCREEN QUANTALCOHOLS 07/22/2020 12:00:00 AM [facility] MAGNESIUM ASSAY OF MAGNESIUM 07/22/2020 12:00:00 AM [facility] PHOSPHORUS INORGANIC ASSAY OF PHOSPHORUS 07/22/2020 12:00:00 AM [facility] HEPATIC FUNCTION PANEL HEPATIC FUNCTION PANEL 07/22/2020 12:00:00 A M [facility] COMPREHENSIVE METABOLIC PANEL COMPREHEN METABOLIC PANEL 02/2020 12:00:00 AM [facility] Results ID Date Data Source [id number] 01/26/2021 12:00:00 PM EDT [facility] Name Value Range Interpretation Code Description Data Nikky rce(s) Supporting Document(s) SARS-CoV-2 (COVID-19) RNA [Presence] in Respiratory specimen by COLLINS with probe detection Not Detected [facility] This lab was ordered by [facility] and reported by [employer] ID Date Data Source [id number] 07/28/2020 04:40:00 PM [facility] kate NO GROWTH AFTER 120 HOURS (5 Days) Proc edure Performed By: [facility] [address] [place] [address] Director: Ashlie Buchanan Name Value Range Interpretation Code Description Data Nikky rce(s) Supporting Document(s) ID Date Data Source [id number] 08/29/2020 01:25:00 PM [facility] Name Value Range Interpretation Code Description Data Nikky rce(s) Supporting Document(s) Hepatitis A Ab,IgG result Normal (applies to no n-numeric results) [facility] Result indicates no past exposure or imm unity to hepatitis A infection. REFERENCE VALUE Unvaccinated: Negative Vaccinated: Positive Test Performed by: [facility] [address] [place] [address] [place]: Lul Padilla M.D. Ph.D.; CLIA# [id number] ID Date Data Source [id number] 08/29/2020 11:47:00 AM EST [facility] NO GROWTH AFTER 120 HOURS (5 Days) Pr ocedure Performed By: [facility] [address] [place] [address] Director: Ashlie Buchanan Name Value Range Interpretation Code Description Data Nikky rce(s) Supporting Document(s) ID Date Data Source [id number] 08/29/2020 11:47:00 AM EST [facility] NO GROWTH AFTER 120 HOURS (5 Days) Pr ocedure Performed By: [facility] [address] [place] [address] Director: Ashlie Buchanan Name Value Range Interpretation Code Description Data Nikky rce(s) Supporting Document(s) ID Date Data Source [id number] 07/24/2020 12:45:00 AM [facility] Test [facility]formed By[facility] [address] [place] [address] Director: Ashlie Rabago MD Test Performed By: [facility] [address] [place] [address] Director: Ashlie Rabago MD Name Value Range Interpretation Code Description Data Nikky rce(s) Supporting Document(s) ID Date Data Source [id number] 07/24/2020 12:45:00 AM EST [facility] Test Performed By: [facility] [address] [place] [address] Director: Ashlie Rabago MD Test Performed By: [facility] [address] [place] [address] Director: Ashlie Rabago MD Name Value Range Interpretation Code Description Data Nikky rce(s) Supporting Document(s) Hep C Ab-T Test Nonreactive [facility] Test Performed By: [facility] [address] [place] [address] Director: Ashlie Rabago MD Results called 07/24/20 [...] be requested by the physician if necessary. ([facility] MMWR No RR-3. 2003). ID Date Data Source [id number] 07/24/2020 12:45:00 AM [facility] Test Performed By: [place] [address] Director: Ashlie Rabago MD Test Performed By: [place] [address] Director: Ashlie Rabago MD Name Value Range Interpretation Code Description Data Nikky rce(s) Supporting Document(s) ID Date Data Source [id number] 07/24/2020 12:34:00 AM [facility] Value Range Interpretation Code Description Data Nikky rce(s) Supporting Document(s) HIV 1/2 Ab p24 Ag Screen Nonreactive Normal (applies to non-numeric results) [facility] Test Performed By: [place] [address] Director: Ashlie Rabago MD ID Date Data Source [id number] 07/23/2020 05:03:00 PM [facility] Name Value Range Interpretation Code Description Data Nikky rce(s) Supporting Document(s) CPK 150 U/L 39-308 Normal (applies to non-numeric resul ts) [facility] Test Performed By: [facility] [address] [place] [address] Director: Ashlie Rabago MD ID Date Data Source [id number] 07/28/2020 07:14:00 AM [facility] Name Value Range Interpretation Code Description Data Nikky rce(s) Supporting Document(s) Hepatitis A Ab,IgG result Normal (applies to no n-numeric results) [facility] Result indicates no past exposure or imm unity to hepatitis A infection. REFERENCE VALUE Unvaccinated: Negative Vaccinated: Positive Test Performed by: [facility] [address] [place] [address] [place]: Lul Padilla M.D. Ph.D.; CLIA# [id number] ID Date Data Source [id number] 07/24/2020 01:48:00 AM [facility] Name Value Range Interpretation Code Description Data [facility] rce(s) Supporting Document(s) HIV Screen result Nonreactive Normal (applies to non-numer ic results) [facility] Test Performed By: [facility] [address] [place] [address] Director: Ashlie Rabago MD ID Date Data Source [id number] 07/22/2020 10:15:00 PM [facility] Name Value Range Interpretation Code Description Data Nikky rce(s) Supporting Document(s) Sodium 141 mmol/L 136-145 Normal (applies to non-numeric resul ts) [facility] Potassium 3.5-5.1 Normal (applies to non-numeric resul ts) [facility] Chloride 105 mmol/L 98-107 Normal (applies to non-numeric resul ts) [facility] Carbon Dioxide CO2 21-32 Normal (applies to non-numer ic results) [facility] Anion Gap 5.0-16.0 Normal (applies to non-numeric resul ts) [facility] BUN 18 mg/dL 7-18 Normal (applies to non-numeric results) [facility] Creatinine,Serum 0.8-1.5 Normal (applies to non-numeric results) [facility] GFR >60 Normal (applies to non-numeric results) [facility] Glucose Level 155 mg/dL 60-99 Above high normal [facility] Reference range is only applicable when patient is fasting Note the following drug interference: Sulfasalazine Sulfapyridine Can see falsely depressed Can see falsely elevated result with up to 17% results with up to 11% decrease in measurement increase in measurement Recommend patients be collected for this test prior to administration of either drug. Calcium 8.5-10.1 Below low normal [facility] spital Bilirubin,Total 0.1-1.9 Normal (applies to non-numeric results) [facility] SGOT(AST) 38 U/L 15-37 Above high normal [facility] ospital Note the following drug interference: Sulfasalazine Sulfapyridine Can see falsely depressed Can see falsely elevated result with up to 10% results with up to 10% decrease in measurement increase in measurement Recommend patients be collected for this test prior to administration of either drug. SGPT(ALT) 48 U/L 12-78 Normal (applies to non-numeric resul ts) [facility] Note the following drug interference: Sulfasalazine Sulfapyridine Can see falsely depressed Can see falsely elevated result with up to 29% results with up to 10% decrease in measurement increase in measurement Recommend patients be collected for this test prior to administration of either drug. Alkaline Phosphatase 74 U/L 38-126 Normal (applies to non-num evan results) [facility] can increase Alkaline Phosp le vels up to 2 times the normal adult value. Normal values for children and adolescents are 2 to 3 times the normal adult value. Total Protein 6.0-8.2 Normal (applies to non-numeric re sults) [facility] Albumin Level 3.4-5.0 Normal (applies to non-numeric re sults) [facility] ID Date Data Source [id number] 07/22/2020 10:15:00 PM EST [facility] Name Value Range Interpretation Code Description Data Nikky rce(s) Supporting Document(s) Bilirubin,Direct 0.05-0.20 Below low normal [facility] ID Date Data Source [id number] 07/22/2020 10:15:00 PM EST [facility] Name Value Range Interpretation Code Description Data Nikky rce(s) Supporting Document(s) Phosphorus 2.5-4.9 Normal (applies to non-numeric resul ts) [facility] ID Date Data Source [id number] 07/22/2020 10:15:00 PM EST [facility] Name Value Range Interpretation Code Description Data Nikky rce(s) Supporting Document(s) Magnesium 1.8-2.4 Normal (applies to non-numeric resul ts) [facility] ID Date Data Source [id number] 07/22/2020 10:15:00 PM EST [facility] Name Value Range Interpretation Code Description Data Nikky rce(s) Supporting Document(s) Thyroid Stimulate Hormone TSH 0.358-3.74 Below low normal [facility] ID Date Data Source [id number] 07/24/2020 01:48:00 AM EST [facility] Name Value Range Interpretation Code Description Data Nikky rce(s) Supporting Document(s) CPK result 150 U/L 39-308 Normal (applies to non-numeric resul ts) [facility] Test Performed By: [facility] [address] [place] [address] Director: Ashlie Rabago MD ID Date Data Source [id number] 07/24/2020 01:48:00 AM EST [facility] Name Value Range Interpretation Code Description Data Nikky rce(s) Supporting Document(s) Hep Bs Ag result T-Test Nonreactive Normal (applies to non -numeric results) [facility] Test Performed By: [facility] [address] [place] [address] Director: Ashlie Rabago MD ID Date Data Source [id number] 07/24/2020 01:48:[address] [facility] Name Value Range Interpretation Code Description Data Nikky rce(s) Supporting Document(s) Hepatitis C Virus Ab result Nonreactive Very abnormal (applies to non-numeric units [facility] Test Performed By: [facility] [address] [place] [address] Director: Ashlie Rabago MD Results called 07/24/20 [...] be requested by the physician if necessary. ([facility] MMWR No RR-3. 2002). CALLED TO ALONDRA DREW ID Date Data Source [id number] 07/24/2020 01:48:00 AM EST [facility] Name Value Range Interpretation Code Description Data Nikky rce(s) Supporting Document(s) Syphilis Serology result Nonreactive Normal (applies to non-numeric results) [facility] Test Performed By: [facility] [address] [place] [address] Director: Ashlie Rabago MD ID Date Data Source [id number] 07/22/2020 09:47:00 PM [facility] Name Value Range Interpretation Code Description Data Nikky rce(s) Supporting Document(s) Ethanol Less than 10.0 Normal (applies to non-numeric r esults) [facility] ID Date Data Source [id number] 07/22/2020 08:40:00 PM [facility] Name Value Range Interpretation Code Description Data Nikky rce(s) Supporting Document(s) White Blood Count 3.5-10.5 Normal (applies to non-numeri c results) [facility] Red Blood Count 4.30-5.70 Normal (applies to non-numeric results) [facility] Hemoglobin 13.5-17.5 Below low normal [facility] ospital Hematocrit 38.8-50.0 Normal (applies to non-numeric resul ts) [facility] Mean Corpuscular Volume 81.2-95.1 Normal (applies to non- numeric results) [facility] Mean Corpuscular Hgb 25.6-32.2 Normal (applies to non-num evan results) [facility] Mean Corpuscular Hgb Conc 32.0-36.0 Normal (applies to no n-numeric results) [facility] Red Cell Distribution Width 11.8-15.6 Normal (appli es to non-numeric results) [facility] Platelet Count 284 x10 3/uL 150-450 Normal (applies to non-numeric results) [facility] Mean Platelet Volume 9.4-12.4 Normal (applies to non-num evan results) [facility] Neutrophils% (Auto) 31.0-71.0 Normal (applies to non-nume su results) [facility] Lymphocytes% (Auto) 20.0-55.0 Normal (applies to non-nume su results) [facility] Monocytes% (Auto) 4.0-12.0 Normal (applies to non-numeri c results) [facility] Eosinophils% (Auto) 1.0-8.0 Normal (applies to non-nume su results) [facility] Basophils% (Auto) 0.0-2.0 Normal (applies to non-numeri c results) [facility] Immature Granulocytes% (Auto) 0.0-2.0 Normal (ayden lies to non-numeric results) [facility] Neutrophils# (Auto) 1.50-6.20 Normal (applies to non-nume su results) [facility] Lymphocytes# (Auto) 1.20-4.00 Normal (applies to non-nume su results) [facility] Monocytes# (Auto) 0.00-0.90 Normal (applies to non-numeri c results) [facility] Eosinophils# (Auto) 0.00-0.50 Normal (applies to non-nume su results) [facility] Basophils# (Auto) 0.00-0.20 Normal (applies to non-numeri c results) [facility] Immature Granulocytes# (Auto) 0.00-7.00 No rmal (applies to non-numeric results) [facility] ID Date Data Source [id number] 07/28/2020 04:42:00 PM EST [facility] spital NO GROWTH AFTER 120 HOURS (5 Days) Proc edure Performed By: [facility] [address] [place] [address] Director: Ashlie Buchanan Name Value Range Interpretation Code Description Data Nikky rce(s) Supporting Document(s) Procedure Social History Code Duration Value Status Description Data Source(s ) Smoking 12/05/2020 12:00:00 AM EDT Unknown if ever smoked comp leted Unknown if ever smoked [facility] ([facility]) Smoking 09/26/2020 12:00:00 AM EST Unknown if ever smoked comp leted Unknown if ever smoked [facility] ([facility]) Vital Signs ID Date Data Source [id number] 08/04/2020 05:33:00 PM EST [facility] Name Value Range Interpretation Code Description Data Source(s) Weight (Calculated Kilograms) 73.48 73.48 [facility] Weight 2592 2592 [facility] Respiratory Effort 1 1 [facility] Height (Calculated Centimeters) 175.26 175. 26 [facility] ([facility]) 23.[address] [facility] Weight (Calculated Kilograms) 73.48 73.48 [facility] Weight 2592 2592 [facility] Respiratory Effort 1 1 [facility] Height (Calculated Centimeters) 175.26 175. 26 [facility] Height 69 69 [facility] Body [facility] Index (BMI) 23.[address] [facility] Weight (Calculated Kilograms) 73.48 73.48 [facility] Weight [address] [facility] Respiratory Effort 1 1 [facility] Height (Calculated Centimeters) 175.26 175. 26 [facility] Height 69 69 [facility] Body [facility] Index (BMI) 23.[address] [facility] Weight (Calculated Kilograms) 73.48 73.48 [facility] Weight [address] [facility] Respiratory Effort 1 1 [facility] Height (Calculated Centimeters) 175.26 175. 26 [facility] Height 69 69 [facility] Body Mass Index (BMI) 23.[address] [facility] Weight (Calculated Kilograms) 73.48 73.48 [facility] Weight 2592 2592 [facility] Respiratory Effort 1 1 [facility] Height (Calculated Centimeters) 175.26 175. 26 [facility] Height 69 69 [facility] Body Mass Index (BMI) 23.[address] [facility]
[2021-07-01] MEDS ORDERED: MORPHINE 4 MG/ML 1ML VIAL/SYRINGE (J2270) IV ONE (05:40)
[2021-07-01 06:52] LABS: AMPHETAMINES LEVEL URINE POSITIVE (NEGATIVE); BARBITURATES URINE NEGATIVE (NEGATIVE); BENZODIAZEPINES URINE NEGATIVE (NEGATIVE); CANNABINOIDS URINE POSITIVE (NEGATIVE); COCAINE METABOLITE URINE POSITIVE (NEGATIVE); METHADONE URINE NEGATIVE (NEGATIVE); OPIATES URINE POSITIVE (NEGATIVE); PHENCYCLIDINE URINE NEGATIVE (NEGATIVE)
[2021-07-01 07:00] VITALS: BP 154/98
--- NOTE | 2021-07-01 08:09 | ECGEPIP ---
[facility] - ED Test Date: 2021-07-01 Pat Name: WILDER LOUISE Department: Room: - Gender: Male Site Leader: : 1995 Requested By: ANGELY Butcher Order Number: [id number] Reading MD: Chito Berry Measurements Intervals [place] Rate: 95 P: 35 OR: 138 QRS: 27 QRSD: 94 T: 31 QT: 348 QTc: 437 Interpretive Statements Normal sinus rhythm POOR R WAVE PROGRESSION SIMILAR TO 01/22/21 Electronically Signed on 07-01-2021 8:08:57 EDT by Chito Berry
--- NOTE | 2021-07-03 08:50 | REP ---
INDICATION: trauma COMPARISON: None. TECHNIQUE: AP and lateral right humerus. FINDINGS: There is no evidence of acute fracture, dislocation, or intrinsic bone disease. IMPRESSION: No fracture or dislocation. A preliminary report was provided by [facility] at the time of the exam. <Electronically signed by Riccardo Moncada > 07/03/21 0849
--- NOTE | 2021-07-03 08:51 | REP ---
INDICATION: trauma COMPARISON: None. TECHNIQUE: Four views right shoulder. FINDINGS: There is no evidence of acute fracture, dislocation, or intrinsic bone disease. IMPRESSION: No fracture or dislocation. A preliminary report was provided by [facility] at the time of the exam. <Electronically signed by Riccardo Moncada > 07/03/21 0802
--- NOTE | 2021-07-03 08:54 | REP ---
INDICATION: trauma COMPARISON: 01/22/2021 TECHNIQUE: Axial noncontrast images from the skull base to the vertex with coronal reformations. This CT examination was performed using the following dose reduction techniques: Automated exposure control, adjustment of mA and/or kv according to the patient's size, and use of iterative reconstruction technique. FINDINGS: The ventricles, sulci, and cisterns are normal in position and appearance. Moncada-white differentiation is maintained. No acute intracranial hemorrhage, mass/mass effect, pathology or trauma/injury. No evidence for acute infarction. No extra-axial fluid collection. Calvarium is intact. Paranasal sinuses and mastoid air cells are clear. Moderate scalp hematoma overlies the right frontal bone. IMPRESSION: Normal noncontrast head CT. No evidence for acute intracranial pathology or trauma/injury. Moderate right scalp hematoma. Examination was a originally reported by night service at 2:38 a.m. 07/01/2021. <Electronically signed by Magdaleno Tipton > 07/03/21 0831
--- NOTE | 2021-07-03 08:55 | REP ---
INDICATION: trauma COMPARISON: 01/22/2021 TECHNIQUE: Axial noncontrast images from the skull base to the thoracic inlet with coronal and sagittal re-formations This CT examination was performed using the following dose reduction techniques: Automated exposure control, adjustment of mA and/or kv according to the patient's size, and use of iterative reconstruction technique. FINDINGS: Normal alignment and lordosis is maintained. Cervical vertebral bodies including transverse processes and spinous processes are intact and there is no evidence for acute fracture / compression injury or subluxation. Spinal canal is patent. Posterior elements are intact. Paravertebral soft tissues are normal. IMPRESSION: Normal noncontrast cervical spine CT. No evidence for acute pathology or trauma/injury. Examination was originally reported by night service at 2:40 a.m. 07/01/2021 <Electronically signed by Magdaleno Tipton > 07/03/21 0852
--- NOTE | 2021-07-03 08:56 | REP ---
INDICATION: trauma. COMPARISON: 01/22/2021. TECHNIQUE: CT maxillofacial bones performed. Sagittal and coronal reconstruction images are performed. FINDINGS: The visualized osseous structures are intact with no evidence of acute fracture. The orbital floors appear intact. The mandible and zygomatic arches appear intact. The nasal bones appear intact. The paranasal sinuses and mastoid air cells are clear. The globes appear intact. Focal right parietal scalp hematoma and laceration is noted. IMPRESSION: No acute fracture visualized. Focal right parietal scalp hematoma and laceration. A preliminary report was provided by [facility] at the time of the exam. <Electronically signed by Riccardo Moncada > 07/03/21 3623
== END 2021-07-01 07:22 | disposition home or self-care (01) ==
LOC: M ED 00:14
DX: S00.81XA Abrasion of other part of head, initial encounter (principal); S00.03XA Contusion of scalp, initial encounter; M25.511 Pain in right shoulder; F19.20 Other psychoactive substance dependence, uncomplicated; Y35.833A Legal intervention involving a conducted energy device, suspect injured, initial encounter; Y92.9 Unspecified place or not applicable; Y93.9 Activity, unspecified; Y99.9 Unspecified external cause status; F17.200 Nicotine dependence, unspecified, uncomplicated; Z91.030 Bee allergy status; J30.1 Allergic rhinitis due to pollen
CPT/HCPCS: 70450; 70486; 72125; 73030; 73060; 80048; 80076; 80307; 82077; 85025; 93005; 96374; 99285; J2270

== ENCOUNTER 2023-04-28 16:24 | Inpatient (IN) | payer MEDICAID, OTHER ==
[~2023-04-28] VITALS: Ht 175.3 cm; Wt 75.9 kg
[2023-04-28] MEDS ORDERED: ACETAMINOPHEN TAB 650MG DOSE (2X325MG) PO ONE (16:35)
[2023-04-28] MEDS ORDERED: PIPERACILLIN/TAZOBACTAM SOD 4.5 GM in D5W MINI-BAG PLUS 50 ML IV ONE (16:35)
[2023-04-28] MEDS ORDERED: NS 1,000 ML IV ONE ×2 (16:35→18:50)
[2023-04-28] MEDS ORDERED: BOOSTRIX VACCINE (TETANUS/DIPHTH/ACEL. PERTUSSIS) 0.5ML SYR IM.IMMUN ONE (16:40)
[2023-04-28 17:01] LABS: HEMATOCRIT 38.6 % (42.0-52.0); HEMOGLOBIN 12.6 g/dl (13.5-17.5); MEAN CORPUSCULAR HEMOGLOBIN 29.6 pg (27.0-33.0); MEAN CORPUSCULAR HGB CONC 32.6 g/dl (32.0-36.5); MEAN CORPUSCULAR VOLUME 90.6 fl (80.0-96.0); PLATELET COUNT, AUTOMATED 180 10^3/uL (150-450); RED BLOOD COUNT 4.26 10^6/uL (4.30-6.10); WHITE BLOOD COUNT 16.2 10^3/uL (4.0-10.0)
[2023-04-28] MEDS ORDERED: MORPHINE 4 MG/ML 1ML VIAL IV ONE (17:15)
[2023-04-28 17:20] LABS: INR 1.11
[2023-04-28 17:21] LABS: PARTIAL THROMBOPLASTIN TIME 35.8 SECONDS (24.8-34.2)
[2023-04-28 17:33] LABS: RSV AMPLIFICATION NEGATIVE (NEGATIVE)
[2023-04-28] MEDS ORDERED: VANCOMYCIN HCL 1,500 MG in NS 250 ML IV ONE (17:45)
[2023-04-28 17:51] LABS: ATYPICAL LYMPH 2 % (0-5); LYMPHOCYTES 9 % (16-44); MONOCYTES 4 % (0-5); NEUTROPHILS 72 % (28-66); PLATELET ESTIMATE NORMAL (NORMAL)
[2023-04-28 17:58] LABS: ERYTHROCYTE SEDIMENTATION RATE 32 mm/hr (0-15)
[2023-04-28] MEDS ORDERED: VANCOMYCIN HCL 750 MG, VIAL MATE ADAPTER 1 EACH in D5W 250 ML IV ONE ×6 (18:00)
[2023-04-28] MEDS ORDERED: MED REC IN PROGRESS XX SCH (18:00)
[2023-04-28 18:12] LABS: ALKALINE PHOSPHATASE 210 U/L (46-116); ALT/SGPT 409 U/L (7.0-40); AST/SGOT 307 U/L (<34); BILIRUBIN,DIRECT 0.4 MG/DL (<0.4); BILIRUBIN,TOTAL 0.8 MG/DL (0.3-1.2); BLOOD UREA NITROGEN 15 MG/DL (9-23); CALCIUM LEVEL 8.2 MG/DL (8.5-10.1); CARBON DIOXIDE LEVEL 27 MMOL/L (20-31); CHLORIDE LEVEL 98 MMOL/L (98-107); GLOMERULAR FILTRATION RATE > 60.0 (>60); GLUCOSE, FASTING 125 MG/DL (60-100); HEPATITIS B CORE ANTIBODY IGM NEGATIVE (NEGATIVE); POTASSIUM SERUM 5.2 MMOL/L (3.5-5.1); SODIUM LEVEL 132 MMOL/L (136-145); TOTAL PROTEIN 6.4 G/DL (5.7-8.2)
[2023-04-28 18:13] LABS: HEPATITIS C VIRUS ABY INDEX > 11.00 INDEX (<0.8)
[2023-04-28] MEDS ORDERED: HOME MED LIST COMPLETE! XX SCH (18:25)
[2023-04-28] MEDS ORDERED: KETOROLAC 30 MG/ML 1ML VIAL IV ONE (18:45)
[2023-04-28] MEDS: LR 1,000 ML IV SCH (18:45)
[2023-04-28 19:13] LABS: PHENCYCLIDINE URINE NEGATIVE (NEGATIVE)
[2023-04-28 19:14] LABS: AMPHETAMINES LEVEL URINE POSITIVE (NEGATIVE); BARBITURATES URINE NEGATIVE (NEGATIVE); BENZODIAZEPINES URINE NEGATIVE (NEGATIVE); CANNABINOIDS URINE POSITIVE (NEGATIVE); COCAINE METABOLITE URINE POSITIVE (NEGATIVE); METHADONE URINE NEGATIVE (NEGATIVE); OPIATES URINE POSITIVE (NEGATIVE)
[2023-04-28] MEDS: PIPERACILLIN/TAZOBACTAM SOD 3.375 GM in D5W MINI-BAG PLUS 50 ML IV SCH (23:31)
[2023-04-28] MEDS: NORCO, ANEXSIA 5/325MG TABLET (HYDROcodone/ACETAMINOPHEN) PO PRN (23:49)
[2023-04-29] MEDS: LR 1,000 ML IV SCH ×4 (01:15→19:43)
[2023-04-29] MEDS: VANCOMYCIN HCL 1,000 MG, VIAL MATE ADAPTER 1 EACH in D5W 250 ML IV SCH ×4 (02:52→21:38)
[2023-04-29] MEDS: NORCO, ANEXSIA 5/325MG TABLET (HYDROcodone/ACETAMINOPHEN) PO PRN ×4 (04:34→21:37)
[2023-04-29] MEDS: PIPERACILLIN/TAZOBACTAM SOD 3.375 GM in D5W MINI-BAG PLUS 50 ML IV SCH ×4 (04:37→22:42)
[2023-04-29] MEDS: KETOROLAC 30 MG/ML 1ML VIAL IV PRN ×2 (06:50→12:34)
[2023-04-29 07:57] LABS: ALBUMIN 2.9 G/DL (3.2-5.2); ALKALINE PHOSPHATASE 207 U/L (46-116); ALT/SGPT 322 U/L (7.0-40); AST/SGOT 191 U/L (<34); BILIRUBIN,DIRECT 1.3 MG/DL (<0.4); BILIRUBIN,TOTAL 1.7 MG/DL (0.3-1.2); BLOOD UREA NITROGEN 9 MG/DL (9-23); CALCIUM LEVEL 8.4 MG/DL (8.5-10.1); CARBON DIOXIDE LEVEL 28 MMOL/L (20-31); CHLORIDE LEVEL 103 MMOL/L (98-107); CREATININE FOR GFR 0.69 MG/DL (0.70-1.30); GLOMERULAR FILTRATION RATE > 60.0 (>60); GLUCOSE, FASTING 111 MG/DL (60-100); MAGNESIUM LEVEL 1.8 MG/DL (1.8-2.4); SODIUM LEVEL 136 MMOL/L (136-145); TOTAL PROTEIN 5.9 G/DL (5.7-8.2)
[2023-04-29 08:12] LABS: BASO % 0.2 % (0.0-1.0); EOS % 0.1 % (0.0-3.0); HEMATOCRIT 37.8 % (42.0-52.0); HEMOGLOBIN 12.4 g/dl (13.5-17.5); LYMPH # 1.4 10^3/uL (1.5-5.0); LYMPH % 7.1 % (24.0-44.0); MEAN CORPUSCULAR HEMOGLOBIN 29.7 pg (27.0-33.0); MEAN CORPUSCULAR HGB CONC 32.8 g/dl (32.0-36.5); MEAN CORPUSCULAR VOLUME 90.4 fl (80.0-96.0); MONO % 9.2 % (2.0-8.0); NEUTROPHILS # 15.8 10^3/uL (1.5-8.5); PLATELET COUNT, AUTOMATED 183 10^3/uL (150-450); RED BLOOD COUNT 4.18 10^6/uL (4.30-6.10); WHITE BLOOD COUNT 19.2 10^3/uL (4.0-10.0)
[2023-04-29 08:37] LABS: MONO # 1.8 10^3/uL (0.0-0.8)
[2023-04-29 11:22] LABS: CPK CREATINE PHOSPHOKINASE 59 U/L (46-171)
[2023-04-29] MEDS ORDERED: DOXY100T27 PO (11:54)
[2023-04-29] MEDS ORDERED: AMOX875T2 PO (11:54)
[2023-04-29 14:00] VITALS: BP 134/90; TEMP 98.2; O2SAT 100
[2023-04-29] MEDS ORDERED: ISOVUE-370 76% 100ML VIAL As Ordered ONE (16:00)
[2023-04-29 18:00] VITALS: BP 122/74; TEMP 98.8; O2SAT 99
[2023-04-29] MEDS: MORPHINE 2 MG/ML 1ML VIAL IV PRN ×2 (18:28→23:04)
[2023-04-29 21:40] VITALS: BP 147/80; TEMP 98.6; O2SAT 100
[2023-04-29] MEDS ORDERED: LORazepam 2 MG/ML 1ML VIAL IV ONE (22:15)
[2023-04-30 02:00] VITALS: BP 147/80; TEMP 99.7; O2SAT 100
[2023-04-30] MEDS: NORCO, ANEXSIA 5/325MG TABLET (HYDROcodone/ACETAMINOPHEN) PO PRN ×2 (02:33→09:04)
[2023-04-30] MEDS: VANCOMYCIN HCL 1,000 MG, VIAL MATE ADAPTER 1 EACH in D5W 250 ML IV SCH ×2 (05:30→10:37)
[2023-04-30] MEDS: LR 1,000 ML IV SCH ×2 (05:43→13:52)
[2023-04-30 06:02] VITALS: BP 113/64; TEMP 98.6; O2SAT 100
[2023-04-30] MEDS: MORPHINE 2 MG/ML 1ML VIAL IV PRN ×2 (06:05→10:11)
[2023-04-30 07:23] LABS: ALBUMIN 2.3 G/DL (3.2-5.2); ALKALINE PHOSPHATASE 198 U/L (46-116); ALT/SGPT 256 U/L (7.0-40); AST/SGOT 171 U/L (<34); BILIRUBIN,TOTAL 0.7 MG/DL (0.3-1.2); BLOOD UREA NITROGEN 9 MG/DL (9-23); CALCIUM LEVEL 8.1 MG/DL (8.5-10.1); CARBON DIOXIDE LEVEL 23 MMOL/L (20-31); CHLORIDE LEVEL 102 MMOL/L (98-107); CREATININE FOR GFR 0.62 MG/DL (0.70-1.30); GLOMERULAR FILTRATION RATE > 60.0 (>60); GLUCOSE, FASTING 90 MG/DL (60-100); MAGNESIUM LEVEL 1.7 MG/DL (1.8-2.4); POTASSIUM SERUM 4.5 MMOL/L (3.5-5.1); SODIUM LEVEL 134 MMOL/L (136-145); TOTAL PROTEIN 5.4 G/DL (5.7-8.2)
[2023-04-30 08:27] LABS: BASO # 0.1 10^3/uL (0.0-0.2); BASO % 0.3 % (0.0-1.0); EOS % 0.2 % (0.0-3.0); HEMATOCRIT 38.3 % (42.0-52.0); HEMOGLOBIN 12.6 g/dl (13.5-17.5); LYMPH # 2.1 10^3/uL (1.5-5.0); LYMPH % 10.2 % (24.0-44.0); MEAN CORPUSCULAR HEMOGLOBIN 29.6 pg (27.0-33.0); MEAN CORPUSCULAR HGB CONC 32.9 g/dl (32.0-36.5); MEAN CORPUSCULAR VOLUME 90.1 fl (80.0-96.0); MONO % 7.8 % (2.0-8.0); NEUTROPHILS # 16.7 10^3/uL (1.5-8.5); NEUTROPHILS % 79.9 % (36.0-66.0); PLATELET COUNT, AUTOMATED 212 10^3/uL (150-450); RED BLOOD COUNT 4.25 10^6/uL (4.30-6.10); WHITE BLOOD COUNT 20.9 10^3/uL (4.0-10.0)
[2023-04-30] MEDS ORDERED: LIDOCAINE 5% (LIDODERM) PATCH TD SCH (09:00)
[2023-04-30] MEDS: PIPERACILLIN/TAZOBACTAM SOD 3.375 GM in D5W MINI-BAG PLUS 50 ML IV SCH ×2 (09:04→10:41)
[2023-04-30 09:17] LABS: MONO # 1.6 10^3/uL (0.0-0.8)
[2023-04-30 10:00] VITALS: BP 134/81; TEMP 99.1; O2SAT 97
[2023-04-30] MEDS ORDERED: MORPHINE 2 MG/ML 1ML VIAL IV PRN (10:45)
[2023-04-30] MEDS: MORPHINE 4 MG/ML 1ML VIAL IV PRN ×2 (13:12→13:51)
== END 2023-04-30 15:00 | disposition left against medical advice (07) | DRG 720 ==
LOC: M ED 16:24 → EDBD 16:24 → M ED INP 18:43 → EEVIPCON 18:43 → ENRESERV 04-29 12:56 → M MSPAV 04-29 14:12
PROVIDERS: ADMIT Internal Medicine; ATTEND Internal Medicine
DX: A41.9 Sepsis, unspecified organism (principal); E87.5 Hyperkalemia; L03.116 Cellulitis of left lower limb; B19.20 Unspecified viral hepatitis C without hepatic coma; D64.9 Anemia, unspecified; R73.9 Hyperglycemia, unspecified; B95.62 Methicillin resistant Staphylococcus aureus infection as the cause of diseases classified elsewhere; F60.2 Antisocial personality disorder; F14.10 Cocaine abuse, uncomplicated; Z91.030 Bee allergy status; Z79.899 Other long term (current) drug therapy; F17.210 Nicotine dependence, cigarettes, uncomplicated

== ENCOUNTER 2023-05-16 04:35 | Emergency (ER) | payer MEDICAID ==
[~2023-05-16] VITALS: Ht 175.3 cm; Wt 74.5 kg
[~2023-05-16 04:35] MED LIST changes: +AMOX875T2 PO; +DOXY100T27 PO
[2023-05-16] MEDS ORDERED: NS 1,000 ML IV ONE (04:40)
[2023-05-16] MEDS ORDERED: MIDAZOLAM 5MG/ML 1ML VIAL As Ordered ONE (04:48)
[2023-05-16] MEDS ORDERED: MIDAZOLAM 5MG/ML 1ML VIAL IV ONE (04:50)
[2023-05-16] MEDS ORDERED: MIDAZOLAM INJ 2MG/2ML VIAL IV ONE (04:50)
[2023-05-16] MEDS ORDERED: BOOSTRIX VACCINE (TETANUS/DIPHTH/ACEL. PERTUSSIS) 0.5ML SYR IM.IMMUN ONE (04:50)
[2023-05-16] MEDS ORDERED: ISOVUE-370 76% 100ML VIAL As Ordered ONE (04:55)
[2023-05-16] MEDS ORDERED: propofoL 1,000 MG in IV 1 EA IV SCH ×2 (04:55→07:05)
[2023-05-16] MEDS ORDERED: ceFAZolin SOD 2 GM in IV 1 EA IV ONE (05:20)
[2023-05-16 05:28] LABS: ABG BASE EXCESS -6.9 (-2.0-2.0); ABG HCO3 20.2 MMOL/L (22.0-26.0); ABG O2 SATURATION 96.7 % (95.0-99.0); ABG PARTIAL PRESSURE CO2 47.9 mmHg (35.0-45.0); ABG STANDARD HCO3 18.8 MMOL/L. (22.0-26.0); ABG TOTAL CO2 21.6 MMOL/L (22.0-29.0)
[2023-05-16 05:32] LABS: ABG pH (ARTERIAL) 7.242 UNITS (7.350-7.450)
[2023-05-16] MEDS ORDERED: dexAMETHasone 20MG/5ML VIAL IV ONE (05:35)
[2023-05-16 05:41] LABS: BASO % 0.4 % (0.0-1.0); EOS % 0.3 % (0.0-3.0); HEMATOCRIT 24.9 % (42.0-52.0); HEMOGLOBIN 7.7 g/dl (13.5-17.5); LYMPH # 2.9 10^3/uL (1.5-5.0); MEAN CORPUSCULAR HEMOGLOBIN 29.2 pg (27.0-33.0); MEAN CORPUSCULAR HGB CONC 30.9 g/dl (32.0-36.5); MEAN CORPUSCULAR VOLUME 94.3 fl (80.0-96.0); MONO # 0.3 10^3/uL (0.0-0.8); MONO % 2.5 % (2.0-8.0); NEUTROPHILS % 67.7 % (36.0-66.0); PLATELET COUNT, AUTOMATED 383 10^3/uL (150-450); RED BLOOD COUNT 2.64 10^6/uL (4.30-6.10); WHITE BLOOD COUNT 10.4 10^3/uL (4.0-10.0)
[2023-05-16 05:52] LABS: ETHYL ALCOHOL (ETHANOL) < 0.003 % (0.000-0.010); LIPASE 127 U/L (12-53)
[2023-05-16 05:53] LABS: AMYLASE 59 U/L (30-118)
[2023-05-16 05:54] LABS: ALBUMIN 1.9 G/DL (3.2-5.2); ALKALINE PHOSPHATASE 81 U/L (46-116); ALT/SGPT 320 U/L (7.0-40); AST/SGOT 786 U/L (<34); BILIRUBIN,DIRECT 0.3 MG/DL (<0.4); BILIRUBIN,TOTAL 0.4 MG/DL (0.3-1.2); BLOOD UREA NITROGEN 22 MG/DL (9-23); CALCIUM LEVEL 7.1 MG/DL (8.5-10.1); CARBON DIOXIDE LEVEL 26 MMOL/L (20-31); CHLORIDE LEVEL 108 MMOL/L (98-107); CK-MB VALUE MASS 13.9 NG/ML (<3.6); CREATININE FOR GFR 1.35 MG/DL (0.70-1.30); GLOMERULAR FILTRATION RATE > 60.0 (>60); GLUCOSE, FASTING 207 MG/DL (60-100); POTASSIUM SERUM 3.5 MMOL/L (3.5-5.1); SODIUM LEVEL 140 MMOL/L (136-145); TOTAL PROTEIN 4.9 G/DL (5.7-8.2)
[2023-05-16 05:56] LABS: INR 1.61; PARTIAL THROMBOPLASTIN TIME 28.3 SECONDS (24.8-34.2); PROTHROMBIN TIME 18.8 SECONDS (12.5-14.5)
[2023-05-16 05:58] LABS: CPK CREATINE PHOSPHOKINASE 621 U/L (46-171); MB/CK RELATIVE INDEX 2.23 (< OR =4)
[2023-05-16 05:59] LABS: APPEARANCE, URINE CLOUDY (CLEAR); BACTERIA, URINE AUTO 1+ (NEGATIVE); BILIRUBIN, URINE AUTO NEGATIVE (NEGATIVE); BLOOD, URINE BLOOD 3+ (NEGATIVE); COLOR, URINE YELLOW (YELLOW); GLUCOSE, URINE (UA) AUTO 1+ mg/dL (NEGATIVE); KETONE, URINE AUTO NEGATIVE (NEGATIVE); LEUKOCYTE ESTERASE, URINE AUTO NEGATIVE (NEGATIVE); MUCUS, URINE SMALL (NEGATIVE); NITRITE, URINE AUTO NEGATIVE (NEGATIVE); PROTEIN, URINE AUTO 2+ mg/dL (NEGATIVE); RBC, URINE AUTO TNTC /HPF (0-3); SPECIFIC GRAVITY URINE AUTO 1.023 (1.002-1.035); SQUAMOUS EPITHELIAL CELL UR AU 0 /HPF (0-6); UROBILINOGEN, URINE AUTO 0.2 mg/dL (0.0-2.0); WBC, URINE AUTO 63 /HPF (0-3)
[2023-05-16 06:15] LABS: BARBITURATES URINE NEGATIVE (NEGATIVE); METHADONE URINE NEGATIVE (NEGATIVE); PHENCYCLIDINE URINE NEGATIVE (NEGATIVE)
[2023-05-16 06:29] VITALS: BP 110/57; TEMP 97.6; O2SAT 100
[2023-05-16 06:31] LABS: AMPHETAMINES LEVEL URINE POSITIVE (NEGATIVE); BENZODIAZEPINES URINE POSITIVE (NEGATIVE); CANNABINOIDS URINE POSITIVE (NEGATIVE); COCAINE METABOLITE URINE POSITIVE (NEGATIVE); OPIATES URINE POSITIVE (NEGATIVE)
[2023-05-16 06:45] VITALS: O2SAT 100
[2023-05-16 06:50] VITALS: BP 119/65
[2023-05-16] MEDS ORDERED: PROPOFOL 1,000 MG/100 ML VIAL As Ordered ONE (07:01)
== END 2023-05-16 06:58 | disposition short-term general hospital (02) ==
LOC: M ED 04:35 → EDBD 04:35 → M ED 06:58
DX: S27.0XXA Traumatic pneumothorax, initial encounter (principal); S22.43XA Multiple fractures of ribs, bilateral, initial encounter for closed fracture; S42.124A Nondisplaced fracture of acromial process, right shoulder, initial encounter for closed fracture; S02.601A Fracture of unspecified part of body of right mandible, initial encounter for closed fracture; S02.91XA Unspecified fracture of skull, initial encounter for closed fracture; S02.80XA Fracture of other specified skull and facial bones, unspecified side, initial encounter for closed fracture; S32.301A Unspecified fracture of right ilium, initial encounter for closed fracture; S02.2XXA Fracture of nasal bones, initial encounter for closed fracture; S02.40EA Zygomatic fracture, right side, initial encounter for closed fracture; S02.85XA Fracture of orbit, unspecified, initial encounter for closed fracture; K66.1 Hemoperitoneum; V09.20XA Pedestrian injured in traffic accident involving unspecified motor vehicles, initial encounter; F60.2 Antisocial personality disorder; F19.10 Other psychoactive substance abuse, uncomplicated; Z86.19 Personal history of other infectious and parasitic diseases; Z91.030 Bee allergy status
CPT/HCPCS: 36430; 36600; 51702; 70450; 70486; 71045; 71260; 72125; 72128; 72131; 72170; 74177; 80048; 80076; 80307; 81001; 82077; 82150; 82550; 82553; 82803; 83605; 83690; 85025; 85610; 85730; 86850; 86900; 86901; 86920; 90715; 93041; 94760; 99285; J0690; J1100; J2250; P9016; Q9967

== ENCOUNTER 2023-08-05 12:26 | Outpatient (RCR) | payer MEDICAID, OTHER | END 2023-08-15 | LOC: M ST 12:26 | PROVIDERS: ATTEND Student in an Organized Health Care Education/Training Program | DX: S06.0X9D Concussion with loss of consciousness of unspecified duration, subsequent encounter (principal) ==

== ENCOUNTER → 2024-04-03 | Outpatient (CLI) | payer OTHER ==
[~2024-04-03] MED LIST changes: +CHOL125C5 PO; +DOXY-323 PO; -DOXY-443 PO; +GABA-1171; +LACO150T; +MELA3TAB49 PO; +PROP40TA62; +SODI1TAB6; +TRAZ-257
== END ==
LOC: M RAD 14:40
PROVIDERS: ATTEND Physician Assistant
DX: H90.3 Sensorineural hearing loss, bilateral (principal); J32.8 Other chronic sinusitis; Z98.890 Other specified postprocedural states

== ENCOUNTER 2024-08-02 05:45 | Emergency (ER) | payer OTHER, SELFPAY ==
[~2024-08-02] VITALS: Ht 182.9 cm; Wt 90.8 kg
[~2024-08-02 05:45] MED LIST changes: -DOXY-323 PO; +DOXY-441 PO
[2024-08-02 06:03] LABS: ABG BASE EXCESS -2.2 (-2.0-2.0); ABG HCO3 24.8 MMOL/L (22.0-26.0); ABG O2 SATURATION 97.3 % (95.0-99.0); ABG PARTIAL PRESSURE CO2 51.1 mmHg (35.0-45.0); ABG PARTIAL PRESSURE O2 103.4 mmHg (75.0-100.0); ABG STANDARD HCO3 22.6 MMOL/L. (22.0-26.0); ABG TOTAL CO2 26.4 MMOL/L (22.0-29.0); ABG pH (ARTERIAL) 7.304 UNITS (7.350-7.450)
[2024-08-02] MEDS: NALOXONE INJ 0.4MG/1ML VIAL IV STA ×2 (06:12→08:07)
[2024-08-02 07:06] LABS: HEMATOCRIT 42.8 % (42.0-52.0); HEMOGLOBIN 13.9 g/dl (13.5-17.5); MEAN CORPUSCULAR HEMOGLOBIN 28.1 pg (27.0-33.0); MEAN CORPUSCULAR HGB CONC 32.5 g/dl (32.0-36.5); MEAN CORPUSCULAR VOLUME 86.6 fl (80.0-96.0); PLATELET COUNT, AUTOMATED 394 10^3/uL (150-450); RED BLOOD COUNT 4.94 10^6/uL (4.30-6.10); WHITE BLOOD COUNT 17.1 10^3/uL (4.0-10.0)
[2024-08-02 07:28] LABS: ETHYL ALCOHOL (ETHANOL) 0.004 % (0.000-0.010)
[2024-08-02 07:30] LABS: ATYPICAL LYMPH 5 % (0-5); BASOPHILS 3 % (0-1); EOSINOPHILS 2 % (0-3); LYMPHOCYTES 19 % (16-44); MONOCYTES 10 % (0-5); NEUTROPHILS 60 % (28-66); PLASMA CELL 1 % (0-0); SALICYLATE LEVEL < 3.0 MG/DL (<30)
[2024-08-02 07:31] LABS: ALBUMIN 3.6 G/DL (3.2-5.2); ALKALINE PHOSPHATASE 67 U/L (40-129); ALT/SGPT 23 U/L (7.0-40); AST/SGOT 35 U/L (<34); BILIRUBIN,DIRECT < 0.1 MG/DL (<0.4); BILIRUBIN,TOTAL 0.2 MG/DL (0.3-1.2); BLOOD UREA NITROGEN 19 MG/DL (9-23); CALCIUM LEVEL 9.5 MG/DL (8.5-10.1); CARBON DIOXIDE LEVEL 30 MMOL/L (20-31); CHLORIDE LEVEL 105 MMOL/L (98-107); CREATININE FOR GFR 1.09 MG/DL (0.70-1.30); GLOMERULAR FILTRATION RATE > 60.0 (>60); GLUCOSE, FASTING 93 MG/DL (60-100); POTASSIUM SERUM 5.1 MMOL/L (3.5-5.1); SODIUM LEVEL 140 MMOL/L (136-145); TOTAL PROTEIN 7.7 G/DL (5.7-8.2)
[2024-08-02 07:32] LABS: PLATELET ESTIMATE NORMAL (NORMAL)
[2024-08-02 07:33] LABS: ANISOCYTOSIS 1+; THYROID STIMULATING HORMONE 5.567 uIU/ML (0.55-4.78)
[2024-08-02 07:34] LABS: SCHISTOCYTES 1+
[2024-08-02 07:36] LABS: HOWELL-JOLLY BODIES 1+; POIKILOCYTOSIS 1+
[2024-08-02 07:37] LABS: CPK CREATINE PHOSPHOKINASE 402 U/L (46-171)
[2024-08-02 08:46] LABS: BARBITURATES URINE NEGATIVE (NEGATIVE); BENZODIAZEPINES URINE NEGATIVE (NEGATIVE); COCAINE METABOLITE URINE NEGATIVE (NEGATIVE); METHADONE URINE NEGATIVE (NEGATIVE); OPIATES URINE NEGATIVE (NEGATIVE); PHENCYCLIDINE URINE NEGATIVE (NEGATIVE)
[2024-08-02 08:49] LABS: AMPHETAMINES LEVEL URINE POSITIVE (NEGATIVE); CANNABINOIDS URINE POSITIVE (NEGATIVE)
[2024-08-02 10:19] VITALS: BP 120/70; TEMP 97.4; O2SAT 97
== END 2024-08-02 10:25 | disposition home or self-care (01) ==
LOC: M ED 05:45
DX: T50.901A Poisoning by unspecified drugs, medicaments and biological substances, accidental (unintentional), initial encounter (principal); F19.10 Other psychoactive substance abuse, uncomplicated; F17.200 Nicotine dependence, unspecified, uncomplicated; Z79.899 Other long term (current) drug therapy
CPT/HCPCS: 36600; 71045; 80048; 80076; 80143; 80307; 82077; 82550; 82803; 84443; 85025; 93005; 93041; 94760; 96374; 96376; 99285; J2310

== ENCOUNTER 2024-08-12 11:03 | Emergency (ER) | payer MEDICAID, OTHER, SELFPAY ==
[2024-08-12 12:04] LABS: HEMATOCRIT 46.4 % (42.0-52.0); HEMOGLOBIN 15.4 g/dl (13.5-17.5); MEAN CORPUSCULAR HEMOGLOBIN 29.1 pg (27.0-33.0); MEAN CORPUSCULAR HGB CONC 33.2 g/dl (32.0-36.5); MEAN CORPUSCULAR VOLUME 87.7 fl (80.0-96.0); PLATELET COUNT, AUTOMATED 330 10^3/uL (150-450); RED BLOOD COUNT 5.29 10^6/uL (4.30-6.10); WHITE BLOOD COUNT 12.8 10^3/uL (4.0-10.0)
[2024-08-12 12:12] LABS: ALKALINE PHOSPHATASE 72 U/L (40-129); ALT/SGPT 24 U/L (7.0-40); AST/SGOT 15 U/L (<34); BILIRUBIN,TOTAL 0.3 MG/DL (0.3-1.2); BLOOD UREA NITROGEN 14 MG/DL (9-23); CARBON DIOXIDE LEVEL 27 MMOL/L (20-31); CHLORIDE LEVEL 103 MMOL/L (98-107); CREATININE FOR GFR 1.13 MG/DL (0.70-1.30); GLOMERULAR FILTRATION RATE > 60.0 (>60); GLUCOSE, FASTING 103 MG/DL (60-100); POTASSIUM SERUM 4.4 MMOL/L (3.5-5.1); SODIUM LEVEL 137 MMOL/L (136-145); TOTAL PROTEIN 7.9 G/DL (5.7-8.2)
[2024-08-12 14:21] LABS: BARBITURATES URINE NEGATIVE (NEGATIVE); BENZODIAZEPINES URINE NEGATIVE (NEGATIVE); METHADONE URINE NEGATIVE (NEGATIVE); OPIATES URINE NEGATIVE (NEGATIVE)
[2024-08-12 14:22] LABS: PHENCYCLIDINE URINE NEGATIVE (NEGATIVE)
[2024-08-12 14:25] LABS: AMPHETAMINES LEVEL URINE POSITIVE (NEGATIVE); CANNABINOIDS URINE POSITIVE (NEGATIVE); COCAINE METABOLITE URINE POSITIVE (NEGATIVE)
[2024-08-12 14:30] VITALS: BP 136/85; TEMP 97.1; O2SAT 99
[2024-08-12] MEDS ORDERED: OVERDOSE RESCUE KIT XX SCH (14:45)
== END 2024-08-12 14:50 | disposition home or self-care (01) ==
LOC: EDBD 11:03 → M ED 11:03
DX: F19.10 Other psychoactive substance abuse, uncomplicated (principal); G40.909 Epilepsy, unspecified, not intractable, without status epilepticus; F32.A Depression, unspecified; F17.200 Nicotine dependence, unspecified, uncomplicated; F12.10 Cannabis abuse, uncomplicated; Z87.820 Personal history of traumatic brain injury; Z91.030 Bee allergy status; Z79.899 Other long term (current) drug therapy

== ENCOUNTER 2024-11-07 05:16 | Emergency (ER) | payer MEDICAID, OTHER ==
[~2024-11-07] VITALS: Ht 180.3 cm; Wt 86.4 kg
[2024-11-07] MEDS: NS (Normal Saline) 0.9% 1,000 ML IV ONE (05:39)
[2024-11-07 05:47] LABS: BASO # 0.1 10^3/uL (0.0-0.2); BASO % 0.4 % (0.0-1.0); EOS % 0.1 % (0.0-3.0); HEMATOCRIT 42.8 % (42.0-52.0); HEMOGLOBIN 13.9 g/dl (13.5-17.5); LYMPH # 5.3 10^3/uL (1.5-5.0); LYMPH % 31.4 % (24.0-44.0); MEAN CORPUSCULAR HEMOGLOBIN 29.2 pg (27.0-33.0); MEAN CORPUSCULAR HGB CONC 32.5 g/dl (32.0-36.5); MEAN CORPUSCULAR VOLUME 89.9 fl (80.0-96.0); MONO # 1.9 10^3/uL (0.0-0.8); MONO % 11.2 % (2.0-8.0); NEUTROPHILS # 9.5 10^3/uL (1.5-8.5); NEUTROPHILS % 56.5 % (36.0-66.0); PLATELET COUNT, AUTOMATED 227 10^3/uL (150-450); RED BLOOD COUNT 4.76 10^6/uL (4.30-6.10); WHITE BLOOD COUNT 16.9 10^3/uL (4.0-10.0)
[2024-11-07 06:08] LABS: ETHYL ALCOHOL (ETHANOL) < 0.003 % (0.000-0.010)
[2024-11-07 06:10] LABS: SALICYLATE LEVEL < 3.0 MG/DL (<30)
[2024-11-07 06:12] LABS: THYROID STIMULATING HORMONE 1.095 uIU/ML (0.55-4.78)
[2024-11-07 06:15] LABS: ALBUMIN 3.8 G/DL (3.2-5.2); ALKALINE PHOSPHATASE 79 U/L (40-129); ALT/SGPT 29 U/L (7.0-40); AST/SGOT 40 U/L (<34); BILIRUBIN,DIRECT 0.1 MG/DL (<0.4); BILIRUBIN,TOTAL 0.3 MG/DL (0.3-1.2); BLOOD UREA NITROGEN 12 MG/DL (9-23); CALCIUM LEVEL 8.6 MG/DL (8.5-10.1); CARBON DIOXIDE LEVEL 27 MMOL/L (20-31); CHLORIDE LEVEL 103 MMOL/L (98-107); CPK CREATINE PHOSPHOKINASE 162 U/L (46-171); GLOMERULAR FILTRATION RATE > 60.0 (>60); GLUCOSE, FASTING 175 MG/DL (60-100); POTASSIUM SERUM 4.5 MMOL/L (3.5-5.1); SODIUM LEVEL 141 MMOL/L (136-145); TOTAL PROTEIN 6.9 G/DL (5.7-8.2)
[2024-11-07] MEDS ORDERED: OVERDOSE RESCUE KIT XX SCH (09:30)
[2024-11-07 10:52] VITALS: BP 120/64; TEMP 97.8; O2SAT 95
== END 2024-11-07 11:00 | disposition home or self-care (01) ==
LOC: M ED 05:16
DX: T40.2X1A Poisoning by other opioids, accidental (unintentional), initial encounter (principal); R00.0 Tachycardia, unspecified; F32.A Depression, unspecified; E55.9 Vitamin D deficiency, unspecified; F17.200 Nicotine dependence, unspecified, uncomplicated; F19.10 Other psychoactive substance abuse, uncomplicated; Z87.820 Personal history of traumatic brain injury; Z79.899 Other long term (current) drug therapy

== ENCOUNTER 2024-11-16 06:15 | Emergency (ER) | payer OTHER ==
[~2024-11-16] VITALS: Ht 182.9 cm; Wt 86.4 kg
[2024-11-16] MEDS: NALOXONE 2MG/2ML SYRINGE ONE (06:10)
[2024-11-16] MEDS ORDERED: NALOXONE INJ 0.4MG/1ML VIAL As Ordered ONE (06:18)
[2024-11-16] MEDS ORDERED: NALOXONE 2MG/2ML SYRINGE As Ordered ONE (06:18)
[2024-11-16] MEDS: NS (Normal Saline) 0.9% 1,000 ML IV ONE (06:20)
[2024-11-16] MEDS: NALOXONE 2MG/2ML SYRINGE IV STA (06:37)
[2024-11-16 06:55] VITALS: TEMP 97.5
[2024-11-16] MEDS ORDERED: OVERDOSE RESCUE KIT XX SCH (07:00)
[2024-11-16 12:15] VITALS: BP 125/78; O2SAT 94
== END 2024-11-16 13:35 | disposition home or self-care (01) ==
LOC: M ED 06:15
DX: T40.2X1A Poisoning by other opioids, accidental (unintentional), initial encounter (principal); F19.10 Other psychoactive substance abuse, uncomplicated; Z91.030 Bee allergy status; Z79.899 Other long term (current) drug therapy
CPT/HCPCS: 96374; 99284; J2310

== ENCOUNTER 2024-12-01 06:22 | Emergency (ER) | payer OTHER ==
[2024-12-01 07:02] LABS: BASO # 0.1 10^3/uL (0.0-0.2); BASO % 0.4 % (0.0-1.0); EOS % 0.2 % (0.0-3.0); HEMATOCRIT 46.4 % (42.0-52.0); HEMOGLOBIN 14.9 g/dl (13.5-17.5); LYMPH # 1.4 10^3/uL (1.5-5.0); LYMPH % 6.1 % (24.0-44.0); MEAN CORPUSCULAR HEMOGLOBIN 29.2 pg (27.0-33.0); MEAN CORPUSCULAR HGB CONC 32.1 g/dl (32.0-36.5); MONO # 1.6 10^3/uL (0.0-0.8); MONO % 6.8 % (2.0-8.0); NEUTROPHILS # 19.9 10^3/uL (1.5-8.5); NEUTROPHILS % 85.6 % (36.0-66.0); PLATELET COUNT, AUTOMATED 216 10^3/uL (150-450); WHITE BLOOD COUNT 23.3 10^3/uL (4.0-10.0)
[2024-12-01] MEDS: NS (Normal Saline) 0.9% 1,000 ML IV ONE (07:02)
[2024-12-01] MEDS: ONDANSETRON 4MG 2ML VIAL IV ONE (07:12)
[2024-12-01 08:20] LABS: ETHYL ALCOHOL (ETHANOL) < 0.003 % (0.000-0.010)
[2024-12-01 08:22] LABS: SALICYLATE LEVEL < 3.0 MG/DL (<30)
[2024-12-01 08:30] LABS: ALBUMIN 3.6 G/DL (3.2-5.2); ALKALINE PHOSPHATASE 63 U/L (40-129); ALT/SGPT 48 U/L (7.0-40); AST/SGOT 47 U/L (<34); BILIRUBIN,DIRECT < 0.1 MG/DL (<0.4); BILIRUBIN,TOTAL 0.2 MG/DL (0.3-1.2); BLOOD UREA NITROGEN 17 MG/DL (9-23); CARBON DIOXIDE LEVEL 24 MMOL/L (20-31); CHLORIDE LEVEL 112 MMOL/L (98-107); CPK CREATINE PHOSPHOKINASE 220 U/L (46-171); CREATININE FOR GFR 1.15 MG/DL (0.70-1.30); GLOMERULAR FILTRATION RATE > 60.0 (>60); GLUCOSE, FASTING 85 MG/DL (60-100); POTASSIUM SERUM 4.3 MMOL/L (3.5-5.1); SODIUM LEVEL 147 MMOL/L (136-145); TOTAL PROTEIN 6.7 G/DL (5.7-8.2)
[2024-12-01] MEDS ORDERED: OVERDOSE RESCUE KIT XX SCH (11:00)
[2024-12-01 14:44] VITALS: BP 114/67; TEMP 97.3; O2SAT 97
== END 2024-12-01 14:47 | disposition home or self-care (01) ==
LOC: M ED 06:22 → EDBD 06:22 → M ED 14:47
DX: T40.2X1A Poisoning by other opioids, accidental (unintentional), initial encounter (principal); R00.0 Tachycardia, unspecified; F19.10 Other psychoactive substance abuse, uncomplicated; Z79.899 Other long term (current) drug therapy; Z91.030 Bee allergy status
CPT/HCPCS: 36415; 80048; 80076; 80143; 82077; 82550; 84443; 85025; 93005; 93041; 94760; 96361; 96374; 99285; J2405

== ENCOUNTER 2025-05-27 08:45 | Emergency (ER) | payer MEDICAID, OTHER ==
[~2025-05-27] VITALS: Ht 175.3 cm; Wt 86.8 kg
[~2025-05-27 08:45] MED LIST changes: -LACO150T; +LACO150T9 PO
[2025-05-27] MEDS: ETOMIDATE 20 MG/10 ML VIAL IV STA (08:55)
[2025-05-27] MEDS: SUCCINYLCHOLINE INJ 200MG/10ML VIAL IV STA (08:55)
[2025-05-27] MEDS ORDERED: FENTANYL DRIP LOCK BOX KEY 1 EACH XX PRN (09:00)
[2025-05-27] MEDS ORDERED: levETIRAcetam INJection 1,000 MG in IV 1 EA IV ONE (09:00)
[2025-05-27] MEDS: levETIRAcetam INJection 1,000 MG in IV 1 EA IV ONE (09:08)
[2025-05-27] MEDS: fentaNYL CITRATE/NaCl 1,000 MCG in IV 1 EA IV SCH (09:13)
[2025-05-27] MEDS: MIDAZOLAM 100MG/100ML-0.9%NACL 100 MG in IV 1 EA IV SCH (09:19)
[2025-05-27] MEDS: LEVETIRACETAM IV ONE ×2 (09:25→10:36)
[2025-05-27] MEDS: D5W IV ONE ×4 (09:25→12:51)
[2025-05-27 09:36] LABS: ABG BASE EXCESS -21.4 (-2.0-2.0); ABG HCO3 8.2 MMOL/L (22.0-26.0); ABG O2 SATURATION 98.6 % (95.0-99.0); ABG PARTIAL PRESSURE CO2 30.7 mmHg (35.0-45.0); ABG PARTIAL PRESSURE O2 171.7 mmHg (75.0-100.0); ABG STANDARD HCO3 9.6 MMOL/L. (22.0-26.0); ABG TOTAL CO2 9.1 MMOL/L (22.0-29.0)
[2025-05-27 09:38] LABS: ABG pH (ARTERIAL) 7.043 UNITS (7.350-7.450)
[2025-05-27 09:56] LABS: PLATELET COUNT, AUTOMATED 314 10^3/uL (150-450)
[2025-05-27 10:17] LABS: AMPHETAMINES LEVEL URINE NEGATIVE (NEGATIVE); BARBITURATES URINE NEGATIVE (NEGATIVE); BENZODIAZEPINES URINE NEGATIVE (NEGATIVE); COCAINE METABOLITE URINE NEGATIVE (NEGATIVE); METHADONE URINE NEGATIVE (NEGATIVE); OPIATES URINE NEGATIVE (NEGATIVE); PHENCYCLIDINE URINE NEGATIVE (NEGATIVE)
[2025-05-27 10:22] LABS: CANNABINOIDS URINE POSITIVE (NEGATIVE)
[2025-05-27] MEDS: THIAMINE 200MG 2ML VIAL IM ONE (10:37)
[2025-05-27] MEDS ORDERED: PHENYTOIN INJ 250MG/5ML VIAL IV ONE (10:45)
[2025-05-27 10:47] LABS: ATYPICAL LYMPH 36 % (0-5); BASOPHILS 1 % (0-1); EOSINOPHILS 3 % (0-3); LYMPHOCYTES 47 % (16-44); MONOCYTES 2 % (0-5); NEUTROPHILS 11 % (28-66)
[2025-05-27 10:48] LABS: PLATELET ESTIMATE NORMAL (NORMAL)
[2025-05-27] MEDS: NS (Normal Saline) 0.9% 1,000 ML IV SCH (11:12)
[2025-05-27 11:20] LABS: ABG BASE EXCESS -3.6 (-2.0-2.0); ABG HCO3 21.4 MMOL/L (22.0-26.0); ABG O2 SATURATION 99.2 % (95.0-99.0); ABG PARTIAL PRESSURE CO2 38.6 mmHg (35.0-45.0); ABG PARTIAL PRESSURE O2 168.8 mmHg (75.0-100.0); ABG STANDARD HCO3 21.5 MMOL/L. (22.0-26.0); ABG TOTAL CO2 22.6 MMOL/L (22.0-29.0); ABG pH (ARTERIAL) 7.361 UNITS (7.350-7.450)
[2025-05-27] MEDS ORDERED: KETAMINE HCL 500 MG in NS 495 ML IV SCH (11:30)
[2025-05-27 11:35] LABS: ALT/SGPT 26.0 U/L (7.0-40); AST/SGOT 22.0 U/L (<34); CALCIUM LEVEL 11.8 MG/DL (8.5-10.1); CARBON DIOXIDE LEVEL 13.0 MMOL/L (20-31); CHLORIDE LEVEL 99.0 MMOL/L (98-107); CPK CREATINE PHOSPHOKINASE 114.0 U/L (46-171); CREATININE FOR GFR 1.33 MG/DL (0.70-1.30); GLOMERULAR FILTRATION RATE 73.3 (>60); MAGNESIUM LEVEL 2.8 MG/DL (1.8-2.4); PHOSPHORUS LEVEL 8.4 MG/DL (2.5-4.9); POTASSIUM SERUM 7.3 MMOL/L (3.5-5.1); SODIUM LEVEL 143.0 MMOL/L (136-145)
[2025-05-27] MEDS ORDERED: SODI1TAB6 PO (11:52)
[2025-05-27] MEDS ORDERED: GABA-1490 PO (11:52)
[2025-05-27] MEDS: KETAMINE HCL 500 MG in NS 495 ML IV SCH (11:54)
[2025-05-27] MEDS ORDERED: VALPROATE SOD IV ONE (11:55)
[2025-05-27] MEDS ORDERED: D5W IV ONE (11:55)
[2025-05-27] MEDS: FOSPHENYTOIN SODIUM IV ONE (11:55)
[2025-05-27] MEDS ORDERED: med rec comment (12:09)
[2025-05-27] MEDS ORDERED: HOME MED LIST COMPLETE! XX SCH (12:10)
[2025-05-27] MEDS: PATIROMER SORBITEX CALCIUM 8.4GM POWDER PACKET PO ONE (12:22)
[2025-05-27] MEDS: CALCIUM GLUCONATE 1,000 MG/10 ML VIAL IV ONE (12:22)
[2025-05-27] MEDS: DEXTROSE 50% 50 ML SYRINGE IV ONE (12:23)
[2025-05-27] MEDS: HumuLIN R (REGULAR) INSULIN (NovoLIN R) **100 U/ML** PER UNIT IV ONE (12:23)
[2025-05-27] MEDS: SODIUM BICARBONATE 8.4% INJ 50ML SYRINGE IV ONE (12:23)
[2025-05-27] MEDS: cefTRIAXone SOD 2 GM in DEXTROSE 5% (D5W) ADV/MINI-BAG 50 ML IV ONE (12:24)
[2025-05-27] MEDS: VALPROATE SOD IV ONE (12:51)
[2025-05-27 12:57] LABS: ETHYL ALCOHOL (ETHANOL) 0.003 % (0.000-0.010)
[2025-05-27] MEDS: VANCOMYCIN HCL 1,750 MG, VIAL MATE ADAPTER 1 EACH in NS 500 ML IV ONE (13:34)
[2025-05-27 15:15] VITALS: TEMP 96.3
[2025-05-27 15:37] LABS: BASO # 0.1 10^3/uL (0.0-0.2); BASO % 0.5 % (0.0-1.0); EOS # 0.0 10^3/uL (0.0-0.5); EOS % 0.1 % (0.0-3.0); LYMPH # 5.3 10^3/uL (1.5-5.0); LYMPH % 27.1 % (24.0-44.0); MONO # 1.9 10^3/uL (0.0-0.8); MONO % 10.0 % (2.0-8.0); NEUTROPHILS # 12.0 10^3/uL (1.5-8.5); NEUTROPHILS % 61.8 % (36.0-66.0); PLATELET COUNT, AUTOMATED 274 10^3/uL (150-450)
[2025-05-27 16:00] VITALS: BP 136/92; O2SAT 100
[2025-05-27 16:19] LABS: ABG BASE EXCESS -0.6 (-2.0-2.0); ABG HCO3 23.9 MMOL/L (22.0-26.0); ABG O2 SATURATION 99.4 % (95.0-99.0); ABG PARTIAL PRESSURE CO2 39.1 mmHg (35.0-45.0); ABG PARTIAL PRESSURE O2 232.2 mmHg (75.0-100.0); ABG STANDARD HCO3 24.0 MMOL/L. (22.0-26.0); ABG TOTAL CO2 25.1 MMOL/L (22.0-29.0); ABG pH (ARTERIAL) 7.404 UNITS (7.350-7.450)
== END 2025-05-27 16:25 | disposition short-term general hospital (02) ==
LOC: M ED 08:45 → EDBD 08:45 → M ED 16:25
DX: G40.909 Epilepsy, unspecified, not intractable, without status epilepticus (principal); E87.5 Hyperkalemia; B19.20 Unspecified viral hepatitis C without hepatic coma; F41.9 Anxiety disorder, unspecified; F32.A Depression, unspecified; Z87.820 Personal history of traumatic brain injury; Z86.59 Personal history of other mental and behavioral disorders; Z91.030 Bee allergy status; Z79.899 Other long term (current) drug therapy
CPT/HCPCS: 36600; 51702; 70450; 71045; 72125; 75809; 80047; 80048; 80076; 80175; 80307; 82077; 82140; 82330; 82550; 82803; 83605; 83735; 84100; 85025; 87040; 87486; 87581; 87633; 87798; 93005; 93041; 94760; 96365; 96366; 96367; 96372; 96375; 99285; J0330; J0612; J0696; J1815; J1953; J2060; J2251; J3010; J3374; J3411; Q2009

== ENCOUNTER 2025-07-29 18:45 | Emergency (ER) | payer OTHER ==
[~2025-07-29] VITALS: Ht 185.4 cm; Wt 86.4 kg
[~2025-07-29 18:45] MED LIST changes: +GABA-1490 PO; +SODI1TAB6 PO; +med rec comment
[2025-07-29 18:47] VITALS: BP 135/95; TEMP 98.2; O2SAT 99
== END 2025-07-29 20:10 | disposition home or self-care (01) ==
LOC: M ED 18:45
DX: S09.90XA Unspecified injury of head, initial encounter (principal); Y04.0XXA Assault by unarmed brawl or fight, initial encounter; Z91.030 Bee allergy status; Z79.899 Other long term (current) drug therapy; Z87.820 Personal history of traumatic brain injury; Y92.143 Cell of prison as the place of occurrence of the external cause; Y93.89 Activity, other specified; Y99.9 Unspecified external cause status